=== PATIENT | female | born 1945 | race Caucasian/White ===

== ENCOUNTER 2017-07-03 10:09 | Inpatient (IN) | payer OTHER ==
[2017-07-03 10:20] VITALS: BMI 30.5
--- NOTE | 2017-07-03 12:01 | PDOC ---
History of Present Illness - General Chief Complaint: Pain, Acute Stated Complaint: PAIN/ NECK, BACK Time Seen by Provider: 07/03/17 10:35 - History of Present Illness Initial Comments: 07/03/17 11:52 71F with pmh of HTN presents with right shoulder pain since Monday night that progressively go up to her right neck which is now stuck in neutral position. She went to the Urgent care yesterday morning and was given a prescription for cyclobenzaprine for muscle spasm. Was seen by the PUBLICATIONS INSPECTOR of her PCP Dr. Rhonda De La Cruz who prescribed Augmentin for URI symptoms. 07/03/17 12:25 07/03/17 12:38 Past History - Past Medical History Allergies/Adverse Reactions: Allergies Allergy/AdvReac Type Severity Reaction Status Date / Time No Known Allergies Allergy Verified 07/03/17 10:19 Home Medications: Ambulatory Orders Aspirin [ASA -] 81 mg PO DAILY 10/24/14 Esomeprazole Mag Trihydrate [Nexium] 40 mg PO DAILY 10/24/14 Olmesartan/Hydrochlorothiazide [Benicar Hct 40-12.5 mg Tablet] 1 each PO DAILY 10/24/14 Asthma: Yes COPD: No HTN: Yes - Surgical History Abdominal Surgery: (nephrostomy) - Suicide/Smoking/Psychosocial Hx Smoking History: Never smoked Information on smoking cessation initiated: No Hx Alcohol Use: No Drug/Substance Use Hx: No Substance Use Type: None Review of Systems - Review of Systems Able to Perform ROS?: Yes Is the patient limited Welsh proficient: No Constitutional: No: Symptoms Reported HEENTM: Yes: Other (neck fixed and tender). No: Eye Pain, Blurred Vision, Recent change in vision, Ear Discharge, Tinnitus, Nose Bleeding, Throat Swelling Respiratory: Yes: Cough Cardiac (ROS): No: Symptoms Reported ABD/GI: No: Symptoms Reported : No: Symptoms Reported Musculoskeletal: No: Symptoms Reported Integumentary: No: Symptoms Reported All Other Systems: Reviewed and Negative *Physical Exam - Vital Signs Last Vital Signs Temp Pulse Resp BP Pulse Ox 98 F 103 H 19 144/44 98 07/03/17 10:17 07/03/17 10:17 07/03/17 10:17 07/03/17 10:17 07/03/17 10:17 - Physical Exam General Appearance: Yes: Nourished, Appropriately Dressed, Moderate Distress HEENT: positive: Other (tender neck, rigid) Respiratory/Chest: positive: Lungs Clear, Normal Breath Sounds. negative: Chest Tender Cardiovascular: positive: Regular Rhythm, Tachycardia Gastrointestinal/Abdominal: positive: Normal Bowel Sounds, Flat, Soft. negative : Tender Neurologic: positive: Fully Oriented, Alert, Normal Mood/Affect ED Treatment Course - LABORATORY CBC & Chemistry Diagram: 07/04/17 06:20 07/04/17 06:20 Medical Decision Making - Medical Decision Making 07/03/17 12:51 71F presenting with neck abd shoulder pain. Musculoskeletal etiology likely , but will rule out infectious or vascular etiology if symptoms don't resolve with valium, fluids and toradol. 07/03/17 15:20 Patient still in considerable pain. Will evaluate with carotid doppler. [facility] *DC/Admit/Observation/Transfer Diagnosis at time of Disposition: Neck pain - Discharge Dispostion Admit: Yes - Referrals - Patient Instructions - Post Discharge Activity
[2017-07-03] MEDS ORDERED: KETOROLAC TROMETHAMINE 15 MG/ML VIAL IVPUSH ONE (12:22)
[2017-07-03] MEDS ORDERED: diazePAM CARPU-JECT 10 MG/2 ML DISP.SYRIN IVPUSH ONE (12:22)
[2017-07-03 12:25] LABS: URINE APPEARANCE CLEAR; URINE BILIRUBIN NEGATIVE (NEGATIVE); URINE BLOOD NEGATIVE (NEGATIVE); URINE COLOR LTYELLOW; URINE GLUCOSE (UA) NEGATIVE (NEGATIVE); URINE KETONE NEGATIVE (NEGATIVE); URINE NITRITE NEGATIVE (NEGATIVE); URINE PROTEIN NEGATIVE (NEGATIVE); URINE UROBILINOGEN NEGATIVE mg/dL (0.2-1.0)
[2017-07-03] MEDS ORDERED: SODIUM CHLORIDE 1,000 ML IV STA (12:33)
--- NOTE | 2017-07-03 12:38 | PDOC ---
Attending Attestation - HPI HPI: 07/03/17 12:40 71 year old female, with significant past medical history of asthma, who presents to the emergency room today complaining of right sided shoulder pain and neck stiffness that has progressively worsened over the past 3 days. She visited an Urgent Care yesterday and was given flexeril without relief. She reports limited ROM and cannot turn her head to the right secondary to pain. 07/03/17 13:41 - Physicial Exam PE: 07/03/17 12:40 GENERAL: Awake, alert, and fully oriented, in no acute distress HEAD: No signs of trauma EYES: PERRLA, EOMI, sclera anicteric, conjunctiva clear ENT: Auricles normal inspection, hearing grossly normal, nares patent, oropharynx clear without exudates. Moist mucosa NECK:tenderness to palpation of the right posterior paraspinal muscle to the base of the skull, +limited ROM secondary to pain.There is no anterior neck tenderness. No erythema. No induration. No fluctuance. no lymphadenopathy, JVD, or masses LUNGS: Breath sounds equal, clear to auscultation bilaterally. No wheezes, and no crackles HEART: Regular rate and rhythm, normal S1 and S2, no murmurs, rubs or gallops EXTREMITIES: Normal range of motion, no edema. No clubbing or cyanosis. No cords, erythema, or tenderness NEUROLOGICAL: Cranial nerves II through XII grossly intact. Normal speech, normal gait SKIN: Warm, Dry, normal turgor, no rashes or lesions noted. <Marii Bro - Last Filed: 07/03/17 13:41> - Resident Resident Name: Rao Travis - ED Attending Attestation I have performed the following: I have examined & evaluated the patient, The case was reviewed & discussed with the resident, I agree w/resident's findings & plan, Exceptions are as noted - Medical Decision Making 07/03/17 13:44 Vital Signs Temp Pulse Resp BP Pulse Ox 98 F 103 H 19 144/44 98 07/03/17 10:17 07/03/17 10:17 07/03/17 10:17 07/03/17 10:17 07/03/17 10:17 71-year-old female with history of hypertension, asthma presents with right neck pain for several days. The patient was recently seen at an urgent care and was diagnosed with muscle spasm and given Flexeril. However, the Flexeril has not been improving symptoms. She also recently see her primary care doctor was prescribed Augmentin for upper respiratory infection. Has been compliant with her medications. The pain was persistent so came into the ED. MRI performed the right shoulder on June 16 shows soft tissue mass superior today acro clavicular joint which shows consistent findings of lipoma, mild before meals arthropathy, mild subchondral changes of the glenoid. Breast screening on 06/08 unremarkable. Patient has been given Toradol and Valium here. Given the persistent symptoms, I agree with the residence plan that we can perform the carotid ultrasound to rule out vessel disease such as dissection but pretest probability low. 07/03/17 15:10 CBC, BMP 07/03/17 12:30 07/03/17 12:30 CMP Sodium 137 mmol/L (136-145) 07/03/17 12:30 Potassium 4.1 mmol/L (3.5-5.1) 07/03/17 12:30 Chloride 100 mmol/L (98-107) 07/03/17 12:30 Carbon Dioxide 31 mmol/L (21-32) 07/03/17 12:30 Anion Gap 6 (8-16) L 07/03/17 12:30 BUN 12 mg/dL (7-18) 07/03/17 12:30 Creatinine 0.7 mg/dL (0.55-1.02) 07/03/17 12:30 Creat Clearance w eGFR > 60 (>60) 07/03/17 12:30 Random Glucose 157 mg/dL (74-106) H 07/03/17 12:30 Calcium 8.9 mg/dL (8.5-10.1) 07/03/17 12:30 Phosphorus 3.2 mg/dL (2.5-4.9) 07/03/17 12:30 Magnesium 2.1 mg/dL (1.8-2.4) 07/03/17 12:30 Total Bilirubin 0.8 mg/dL (0.2-1.0) 07/03/17 12:30 AST 14 U/L (15-37) L 07/03/17 12:30 ALT 31 U/L (12-78) 07/03/17 12:30 Alkaline Phosphatase 91 U/L (45-117) 07/03/17 12:30 Creatine Kinase 77 IU/L (26-192) 07/03/17 12:30 Troponin I < 0.02 ng/ml (0.00-0.05) 07/03/17 12:30 Total Protein 7.1 g/dl (6.4-8.2) 07/03/17 12:30 Albumin 3.8 g/dl (3.4-5.0) 07/03/17 12:30 Urine Test Results Urine Color Ltyellow 07/03/17 12:15 Urine Appearance Clear 07/03/17 12:15 Urine pH 5.0 (5.0-8.0) 07/03/17 12:15 Ur Specific [place] 1.006 (1.001-1.035) 07/03/17 12:15 Urine Protein Negative (NEGATIVE) 07/03/17 12:15 Urine Glucose (UA) Negative (NEGATIVE) 07/03/17 12:15 Urine Ketones Negative (NEGATIVE) 07/03/17 12:15 Urine Blood Negative (NEGATIVE) 07/03/17 12:15 Urine Nitrite Negative (NEGATIVE) 07/03/17 12:15 Urine Bilirubin Negative (NEGATIVE) 07/03/17 12:15 Pt continues to have persistent neck pain. Carotid dopplers pending. Given the persistence of pain, case was discussed with Dr. Montgomery, who accepts to med/surg observation. <Kamron Lindsey - Last Filed: 07/03/17 15:14> Heart Score/ECG Review #1 ECG reviewed & interpreted by me at: 13:10 07/03/17 14:40 NSR 96, +LVH, no std/john, Q wave V1-V2, QTC 439 msec <Kamron Lindsey - Last Filed: 07/03/17 15:14>
[2017-07-03] MEDS ORDERED: diazePAM 5 MG TABLET PO ONE (12:41)
[2017-07-03] MEDS ORDERED: diazePAM 5 MG TABLET ONE (12:42)
[2017-07-03 12:48] LABS: BASOPHIL 0.6 % (0-2.0); EOSINOPHIL 0.7 % (0-4.5); MCH 27.3 pg (25.7-33.7); MCHC 32.8 g/dl (32.0-36.0); MEAN CELL VOLUME 83.2 fl (80-96); MEAN PLT VOLUME 8.2 fl (7.5-11.1); NEUTROPHILS 81.7 % (42.8-82.8); PLATELET COUNT 240 K/MM3 (134-434); RDW 13.7 % (11.6-15.6)
[2017-07-03 13:03] LABS: ALBUMIN 3.8 g/dl (3.4-5.0); ANION GAP 6 (8-16); BILIRUBIN,TOTAL 0.8 mg/dL (0.2-1.0); CALCIUM 8.9 mg/dL (8.5-10.1); CO2 31 mmol/L (21-32); CREATININE 0.7 mg/dL (0.55-1.02); GLUCOSE,RANDOM 157 mg/dL (74-106); MAGNESIUM 2.1 mg/dL (1.8-2.4); PHOSPHOROUS 3.2 mg/dL (2.5-4.9); SGOT/AST 14 U/L (15-37); SGPT/ALT 31 U/L (12-78); TOT PROT 7.1 g/dl (6.4-8.2)
[2017-07-03 13:06] LABS: ALK PHOS 91 U/L (45-117); CPK 77 IU/L (26-192); TROPONIN I < 0.02 ng/ml (0.00-0.05)
[2017-07-03] MEDS ORDERED: KETOROLAC TROMETHAMINE 15 MG/ML VIAL ONE (13:07)
[2017-07-03 13:13] LABS: INR 1.08 (0.82-1.09); PROTHROMBIN TIME (PATIENT) 12.2 SEC (9.98-11.88)
[2017-07-03 13:16] LABS: ACTIVATED PTT 26.4 SECONDS (26.9-34.4)
[2017-07-03] MEDS ORDERED: morphine CARPU-JECT 4 MG/1 ML DISP.SYRIN IVPUSH ONE (14:58)
[2017-07-03] MEDS ORDERED: morphine SULFATE 4 MG/ML VIAL ONE (15:08)
[2017-07-03] MEDS ORDERED: morphine SULFATE 4 MG/ML VIAL IVPUSH PRN (16:57)
--- NOTE | 2017-07-03 16:58 | HP ---
Admitting History and Physical - Primary Care Physician PCP: Pancho De La Cruz - Admission Chief Complaint: neck pain for 3 days History of Present Illness: 71F with pmh of HTN presents with right shoulder pain since Monday night that progressively go up to her right neck which is now stuck in neutral position. She went to the Urgent care yesterday morning and was given a prescription for cyclobenzaprine for muscle spasm.she took flexeril yestgerdy not relief and today in morning before comming to ER no relief in ER she got valium and mprhione no relef History Source: Patient - Smoking History Smoking history: Never smoked - Alcohol/Substance Use Hx Alcohol Use: No Home Medications - Allergies Allergies/Adverse Reactions: Allergies Allergy/AdvReac Type Severity Reaction Status Date / Time No Known Allergies Allergy Verified 07/03/17 10:19 - Home Medications Home Medications: Ambulatory Orders Aspirin [ASA -] 81 mg PO DAILY 10/24/14 Esomeprazole Mag Trihydrate [Nexium] 40 mg PO DAILY 10/24/14 Olmesartan/Hydrochlorothiazide [Benicar Hct 40-12.5 mg Tablet] 1 each PO DAILY 10/24/14 Review of Systems - Review of Systems Neck: reports: Pain on Movement, Stiffness Physical Examination Vital Signs: Vital Signs Temperature 98 F 07/03/17 10:17 Pulse Rate 103 H 07/03/17 10:17 Respiratory Rate 19 07/03/17 10:17 Blood Pressure 144/44 07/03/17 10:17 O2 Sat by Pulse Oximetry (%) 98 07/03/17 10:17 Constitutional: Yes: Calm Neck: Yes: Rigid, Tenderness (unable to turn her head to the right side cannot exgtend of flex her neck) Cardiovascular: Yes: Regular Rate and Rhythm, S1, S2 Respiratory: Yes: CTA Bilaterally Gastrointestinal: Yes: Normal Bowel Sounds, Soft Edema: No Neurological: Yes: Alert, Oriented Labs: CBC, BMP 07/03/17 12:30 07/03/17 12:30 Problem List - Problems (1) Neck pain Assessment/Plan: observation neuro eval mujscle relaxants pain control ct scan of neck Code(s): M54.2 - CERVICALGIA (2) HTN (hypertension) Assessment/Plan: valsartan Code(s): I10 - ESSENTIAL (PRIMARY) HYPERTENSION
--- NOTE | 2017-07-03 17:17 | CONSULT ---
Consult - text type - Consultation Consultation Note: Neurology History of Present Illness 71F with pmh of HTN presents with right shoulder pain since Monday night that progressively go up to her right neck which is now stuck in neutral position. She went to the Urgent care yesterday morning and was given a prescription for cyclobenzaprine for muscle spasm without relief. She completed MRI of Upper ext ten days ago which I reviewed and showed lipoma but not major structural injuries of shoulder. Her symptoms seem more consistent with Cervicalgia and Cervical radiculopathy. I discussed with her having an MRI of C spine to further evaluate and she agreed. Muscle relaxant should be continued and provide relief in conjuntion with pain medication. Past History - Past Medical History Allergies/Adverse Reactions: Allergies Allergy/AdvReac Type Severity Reaction Status Date / Time No Known Allergies Allergy Verified 07/03/17 10:19 Home Medications: Ambulatory Orders Aspirin [ASA -] 81 mg PO DAILY 10/24/14 Esomeprazole Mag Trihydrate [Nexium] 40 mg PO DAILY 10/24/14 Olmesartan/Hydrochlorothiazide [Benicar Hct 40-12.5 mg Tablet] 1 each PO DAILY 10/24/14 Asthma: Yes COPD: No HTN: Yes - Surgical History Abdominal Surgery: (nephrostomy) - Suicide/Smoking/Psychosocial Hx Smoking History: Never smoked Information on smoking cessation initiated: No Hx Alcohol Use: No Drug/Substance Use Hx: No Substance Use Type: None Review of Systems - Review of Systems Able to Perform ROS?: Yes Is the patient limited Iraqi proficient: No Constitutional: No: Symptoms Reported HEENTM: Yes: Other (neck fixed and tender). No: Eye Pain, Blurred Vision, Recent change in vision, Ear Discharge, Tinnitus, Nose Bleeding, Throat Swelling Respiratory: Yes: Cough Cardiac (ROS): No: Symptoms Reported ABD/GI: No: Symptoms Reported : No: Symptoms Reported Musculoskeletal: No: Symptoms Reported Integumentary: No: Symptoms Reported All Other Systems: Reviewed and Negative *Physical Exam - Vital Signs Last Vital Signs Temp Pulse Resp BP Pulse Ox 98 F 103 H 19 144/44 98 07/03/17 10:17 07/03/17 10:17 07/03/17 10:17 07/03/17 10:17 07/03/17 10:17 - Physical Exam General Appearance: Yes: Nourished, Appropriately Dressed, Moderate Distress HEENT: positive: Other (tender neck, rigid) Respiratory/Chest: positive: Lungs Clear, Normal Breath Sounds. negative: Chest Tender Cardiovascular: positive: Regular Rhythm, Tachycardia Gastrointestinal/Abdominal: positive: Normal Bowel Sounds, Flat, Soft. negative : Tender Neurologic: positive: Fully Oriented, Alert, Normal Mood/Affect, limited range of motion of C spine, strenght intact, sensory normal, gait deferred CBCD WBC 11.0 K/mm3 (4.0-10.0) H 07/03/17 12:30 RBC 4.69 M/mm3 (3.60-5.2) 07/03/17 12:30 Hgb 12.8 GM/dL (10.7-15.3) 07/03/17 12:30 Hct 39.0 % (32.4-45.2) 07/03/17 12:30 MCV 83.2 fl (80-96) 07/03/17 12:30 MCHC 32.8 g/dl (32.0-36.0) 07/03/17 12:30 RDW 13.7 % (11.6-15.6) 07/03/17 12:30 Plt Count 240 K/MM3 (134-434) 07/03/17 12:30 MPV 8.2 fl (7.5-11.1) 07/03/17 12:30 CMP Sodium 137 mmol/L (136-145) 07/03/17 12:30 Potassium 4.1 mmol/L (3.5-5.1) 07/03/17 12:30 Chloride 100 mmol/L (98-107) 07/03/17 12:30 Carbon Dioxide 31 mmol/L (21-32) 07/03/17 12:30 Anion Gap 6 (8-16) L 07/03/17 12:30 BUN 12 mg/dL (7-18) 07/03/17 12:30 Creatinine 0.7 mg/dL (0.55-1.02) 07/03/17 12:30 Creat Clearance w eGFR > 60 (>60) 07/03/17 12:30 Calcium 8.9 mg/dL (8.5-10.1) 07/03/17 12:30 Total Bilirubin 0.8 mg/dL (0.2-1.0) 07/03/17 12:30 AST 14 U/L (15-37) L 07/03/17 12:30 ALT 31 U/L (12-78) 07/03/17 12:30 Alkaline Phosphatase 91 U/L (45-117) 07/03/17 12:30 Total Protein 7.1 g/dl (6.4-8.2) 07/03/17 12:30 Albumin 3.8 g/dl (3.4-5.0) 07/03/17 12:30 MRI Upper Ext reviewed Medical Decision Making 71F with pmh of HTN presents with right shoulder pain since Monday night that progressively go up to her right neck which is now stuck in neutral position. She went to the Urgent care yesterday morning and was given a prescription for cyclobenzaprine for muscle spasm without relief. She completed MRI of Upper ext ten days ago which I reviewed and showed lipoma but not major structural injuries of shoulder. Her symptoms seem more consistent with Cervicalgia and Cervical radiculopathy. I discussed with her having an MRI of C spine to further evaluate and she agreed. Muscle relaxant should be continued and provide relief in conjuntion with pain medication. Can continue Cyclobenzaprine 10mg up to three times per day. Will add lidocaine patch. Will order MRI C spine. Physical therapy may be of benefit. Also recommended cold compresses and/ or heat therapy. No sudden head movements.
[2017-07-03 17:44] LABS: URINE LEUK ESTERASE Negative (NEGATIVE)
[2017-07-03] MEDS ORDERED: CYCLOBENZAPRINE HCL 10 MG TABLET (FP) ONE (17:56)
[2017-07-03] MEDS: CYCLOBENZAPRINE HCL 10 MG TABLET (FP) PO SCH ×2 (18:00→23:00)
--- NOTE | 2017-07-03 19:49 | CONSULT ---
Consult - Alcohol/Substance Use Hx Alcohol Use: No - Smoking History Smoking history: Never smoked Home Medications - Allergies Allergies/Adverse Reactions: Allergies Allergy/AdvReac Type Severity Reaction Status Date / Time No Known Allergies Allergy Verified 07/03/17 10:19 - Home Medications Home Medications: Ambulatory Orders Aspirin [ASA -] 81 mg PO DAILY 10/24/14 Esomeprazole Mag Trihydrate [Nexium] 40 mg PO DAILY 10/24/14 Olmesartan/Hydrochlorothiazide [Benicar Hct 40-12.5 mg Tablet] 1 each PO DAILY 10/24/14 Physical Exam Vital Signs: Vital Signs Temperature 98 F 07/03/17 10:17 Pulse Rate 95 H 07/03/17 17:15 Respiratory Rate 18 07/03/17 17:15 Blood Pressure 154/86 07/03/17 17:15 O2 Sat by Pulse Oximetry (%) 99 07/03/17 17:15 Labs: CBC, BMP 07/03/17 12:30 07/03/17 12:30 Assessment/Plan Vascular Surgery 71F with pmh of HTN presents with right shoulder pain since Monday night that progressively go up to her right neck which is now stuck in neutral position. She went to the Urgent care yesterday morning and was given a prescription for cyclobenzaprine for muscle spasm. Was seen by the SKI INSTRUCTOR of her PCP Dr. Rhonda De La Cruz who prescribed Augmentin for URI symptoms. 07/03/17 12:25 07/03/17 12:38 Past History - Past Medical History Allergies/Adverse Reactions: Allergies Allergy/AdvReac Type Severity Reaction Status Date / Time No Known Allergies Allergy Verified 07/03/17 10:19 Home Medications: Ambulatory Orders Aspirin [ASA -] 81 mg PO DAILY 10/24/14 Esomeprazole Mag Trihydrate [Nexium] 40 mg PO DAILY 10/24/14 Olmesartan/Hydrochlorothiazide [Benicar Hct 40-12.5 mg Tablet] 1 each PO DAILY 10/24/14 Asthma: Yes COPD: No HTN: Yes PE Head - NC/At lUng - CTA heart - RRR abd - soft,nt,nd ext - warm, pink. Neck very stiff. FROM x 4 A/P Carotid doppler reviewed -- all normal. No need for any surgery . all velocities normal. MRI pending. Medical management. Veto Mccray DO
[2017-07-03] MEDS ORDERED: HYDROmorphone HCL CARPU-JECT 1 MG/1 ML DISP.SYRIN IVPB PRN (19:52)
[2017-07-03] MEDS: LIDOCAINE 5% TOPICAL PATCH TP SCH (19:57)
[2017-07-03 20:06] LABS: CPK 54 IU/L (26-192); TROPONIN I < 0.02 ng/ml (0.00-0.05)
[2017-07-03] MEDS: HYDROmorphone HCL CARPU-JECT 2 MG/1 ML DISP.SYRIN IVPB PRN (20:51)
[2017-07-03] MEDS: LIDOCAINE PATCH REMOVAL MC SCH (21:35)
[2017-07-04] MEDS: HYDROmorphone HCL CARPU-JECT 2 MG/1 ML DISP.SYRIN IVPB PRN ×4 (00:45→23:08)
[2017-07-04] MEDS: CYCLOBENZAPRINE HCL 10 MG TABLET (FP) PO SCH ×3 (05:55→21:16)
[2017-07-04] MEDS: LIDOCAINE PATCH REMOVAL MC SCH ×2 (06:03→22:15)
[2017-07-04 08:04] LABS: ANION GAP 2 (8-16); CALCIUM 8.3 mg/dL (8.5-10.1); CO2 34 mmol/L (21-32); GLUCOSE,RANDOM 169 mg/dL (74-106); MAGNESIUM 1.9 mg/dL (1.8-2.4); PHOSPHOROUS 2.6 mg/dL (2.5-4.9); SGOT/AST 10 U/L (15-37)
[2017-07-04 08:06] LABS: ALK PHOS 80 U/L (45-117); BILIRUBIN,TOTAL 0.8 mg/dL (0.2-1.0); CREATININE 0.6 mg/dL (0.55-1.02); SGPT/ALT 25 U/L (12-78)
[2017-07-04 08:10] LABS: BASOPHIL 0.5 % (0-2.0); EOSINOPHIL 1.1 % (0-4.5); MCH 27.9 pg (25.7-33.7); MCHC 33.7 g/dl (32.0-36.0); MEAN CELL VOLUME 82.7 fl (80-96); MEAN PLT VOLUME 8.5 fl (7.5-11.1); NEUTROPHILS 80.8 % (42.8-82.8); PLATELET COUNT 184 K/MM3 (134-434); RDW 13.6 % (11.6-15.6); WHITE BLOOD COUNT 8.8 K/mm3 (4.0-10.0)
[2017-07-04 08:49] LABS: CPK 41 IU/L (26-192); TROPONIN I < 0.02 ng/ml (0.00-0.05)
--- NOTE | 2017-07-04 09:19 | PN ---
Progress Note (short form) - Note Progress Note: Neurology History of Present Illness 71F with pmh of HTN presents with right shoulder pain since Monday night that progressively go up to her right neck which is now stuck in neutral position. She went to the Urgent care yesterday morning and was given a prescription for cyclobenzaprine for muscle spasm without relief. She completed MRI of Upper ext ten days ago which I reviewed and showed lipoma but not major structural injuries of shoulder. Her symptoms seem more consistent with Cervicalgia and Cervical radiculopathy. I discussed with her having an MRI of C spine to further evaluate and she agreed. Muscle relaxant should be continued and provide relief in conjuntion with pain medication. Lidocaine patch had been ordered with minimal relief. She remains with muscle spasm and stiff neck. Spoke to Dr. De La Cruz today, plan to try short course of Decadron, in agreement with this. Carotid dopplers completed and reviewed, mentioned 50-69% stenosis of L ICA. Vascular surgery note reviewed, reports this is normal, no surgical intervention, also recommends MRI C spine. Active Medications Cyclobenzaprine HCl (Flexeril -) 10 mg PO TID [facility] Last Admin: 07/04/17 05:55 Dose: 10 mg Hydromorphone HCl (Dilaudid Injection -) 1 mg IVPB Q4H PRN PRN Reason: PAIN Last Admin: 07/04/17 06:54 Dose: 1 mg Lidocaine (Lidoderm Patch -) 1 patch TP DAILY [facility] Last Admin: 07/03/17 19:57 Dose: 1 patch Lorazepam (Ativan -) 1 mg PO ONCE ONE Stop: 07/04/17 09:15 Miscellaneous (Lidoderm Patch Removal) 1 each MC DAILY@2200 [facility] Last Admin: 07/04/17 06:03 Dose: 1 each Morphine Sulfate (Morphine Sulfate) 4 mg IVPUSH Q6H PRN PRN Reason: PAIN Valsartan (Diovan -) 80 mg PO DAILY [facility] *Physical Exam Vital Signs Period Temp Pulse Resp BP Sys/Zimmer Pulse Ox Last 24 Hr 98 F-99 F 92-103 18-21 137-154/44-86 98-99 - Physical Exam General Appearance: Yes: Nourished, Appropriately Dressed, Moderate Distress HEENT: positive: Other (tender neck, rigid) Respiratory/Chest: positive: Lungs Clear, Normal Breath Sounds. negative: Chest Tender Cardiovascular: positive: Regular Rhythm, Tachycardia Gastrointestinal/Abdominal: positive: Normal Bowel Sounds, Flat, Soft. negative : Tender Neurologic: positive: Fully Oriented, Alert, Normal Mood/Affect, limited range of motion of C spine, strenght intact, sensory normal, gait deferred CBCD WBC 8.8 K/mm3 (4.0-10.0) 07/04/17 06:20 RBC 4.11 M/mm3 (3.60-5.2) 07/04/17 06:20 Hgb 11.4 GM/dL (10.7-15.3) D 07/04/17 06:20 Hct 34.0 % (32.4-45.2) 07/04/17 06:20 MCV 82.7 fl (80-96) 07/04/17 06:20 MCHC 33.7 g/dl (32.0-36.0) 07/04/17 06:20 RDW 13.6 % (11.6-15.6) 07/04/17 06:20 Plt Count 184 K/MM3 (134-434) D 07/04/17 06:20 MPV 8.5 fl (7.5-11.1) 07/04/17 06:20 CMP Sodium 137 mmol/L (136-145) 07/04/17 06:20 Potassium 3.8 mmol/L (3.5-5.1) 07/04/17 06:20 Chloride 101 mmol/L (98-107) 07/04/17 06:20 Carbon Dioxide 34 mmol/L (21-32) H 07/04/17 06:20 Anion Gap 2 (8-16) L 07/04/17 06:20 BUN 11 mg/dL (7-18) 07/04/17 06:20 Creatinine 0.6 mg/dL (0.55-1.02) 07/04/17 06:20 Creat Clearance w eGFR > 60 (>60) 07/04/17 06:20 Calcium 8.3 mg/dL (8.5-10.1) L 07/04/17 06:20 Total Bilirubin 0.8 mg/dL (0.2-1.0) 07/04/17 06:20 AST 10 U/L (15-37) L D 07/04/17 06:20 ALT 25 U/L (12-78) 07/04/17 06:20 Alkaline Phosphatase 80 U/L (45-117) 07/04/17 06:20 Total Protein 6.0 g/dl (6.4-8.2) L 07/04/17 06:20 Albumin 3.0 g/dl (3.4-5.0) L D 07/04/17 06:20 MRI Upper Ext reviewed Carotid Dopplers reviewed Medical Decision Making 71F with pmh of HTN presents with right shoulder pain since Monday night that progressively go up to her right neck which is now stuck in neutral position. She went to the Urgent care yesterday morning and was given a prescription for cyclobenzaprine for muscle spasm without relief. She completed MRI of Upper ext ten days ago which I reviewed and showed lipoma but not major structural injuries of shoulder. Her symptoms seem more consistent with Cervicalgia and Cervical radiculopathy. I discussed with her having an MRI of C spine to further evaluate and she agreed. Continue Cyclobenzaprine 10mg up to three times per day. Addded lidocaine patch. MRI C spine pending. Physical therapy may be of benefit once muscle spasm improves. Also recommended cold compresses and/or heat therapy. No sudden head movements. Decadron short course to be tried as well. No surgical intervention for Carotid doppler L ICA 50-69% stenosis as per vascular surgery note.
--- NOTE | 2017-07-04 09:25 | PN ---
Progress Note, Physician History of Present Illness: SEVERE NECK PAIN - Current Medication List Current Medications: Active Medications Cyclobenzaprine HCl (Flexeril -) 10 mg PO TID [facility] Last Admin: 07/04/17 05:55 Dose: 10 mg Hydromorphone HCl (Dilaudid Injection -) 1 mg IVPB Q4H PRN PRN Reason: PAIN Last Admin: 07/04/17 06:54 Dose: 1 mg Lidocaine (Lidoderm Patch -) 1 patch TP DAILY [facility] Last Admin: 07/03/17 19:57 Dose: 1 patch Lorazepam (Ativan -) 1 mg PO ONCE ONE Stop: 07/04/17 09:15 Miscellaneous (Lidoderm Patch Removal) 1 each MC DAILY@2200 [facility] Last Admin: 07/04/17 06:03 Dose: 1 each Morphine Sulfate (Morphine Sulfate) 4 mg IVPUSH Q6H PRN PRN Reason: PAIN Valsartan (Diovan -) 80 mg PO DAILY [facility] - Objective Vital Signs: Vital Signs Temperature 98.9 F 07/04/17 05:53 Pulse Rate 99 H 07/04/17 05:53 Respiratory Rate 21 07/04/17 05:53 Blood Pressure 137/74 07/04/17 05:53 O2 Sat by Pulse Oximetry (%) 98 07/04/17 00:17 Neck: Yes: Decreased ROM, Other (TENDERNESS OF THE NECK) Cardiovascular: Yes: Regular Rate and Rhythm Respiratory: Yes: Regular, CTA Bilaterally Gastrointestinal: Yes: Normal Bowel Sounds, Soft Labs: CBC, BMP 07/04/17 06:20 07/04/17 06:20 INR, PTT INR 1.08 (0.82-1.09) 07/03/17 12:30 Problem List - Problems (1) Neck pain Assessment/Plan: R/O SPINAL STENOSIS MRI OF HEAD START IV DECADRON Code(s): M54.2 - CERVICALGIA (2) HTN (hypertension) Assessment/Plan: MONITOR Code(s): I10 - ESSENTIAL (PRIMARY) HYPERTENSION
--- NOTE | 2017-07-04 10:26 | EKG ---
Test Reason : Blood Pressure : / mmHG Vent. Rate : 096 BPM Atrial Rate : 096 BPM P-R Int : 150 ms QRS Dur : 082 ms QT Int : 348 ms P-R-T Axes : 000 -02 003 degrees QTc Int : 439 ms NORMAL SINUS RHYTHM MINIMAL VOLTAGE CRITERIA FOR LVH, MAY BE NORMAL VARIANT POSSIBLE ANTERIOR INFARCT (CITED ON OR BEFORE 24-SEP-2002) ABNORMAL ECG WHEN COMPARED WITH ECG OF 21-AUG-2008 10:37, QUESTIONABLE CHANGE IN INITIAL FORCES OF ANTEROSEPTAL LEADS Confirmed by NEAL RDZ, JACQUELINE ([id number]) on 07/04/2017 10:26:00 AM Referred By: Confirmed By:JACQUELINE DE JESUS MD
[2017-07-04] MEDS: DEXAMETHASONE SOD PHOSPHATE 10 MG/1 ML VIAL IVPUSH SCH ×3 (11:16→18:34)
[2017-07-04] MEDS: VALSARTAN 80 MG TABLET (UD) PO SCH (11:22)
[2017-07-04] MEDS: LIDOCAINE 5% TOPICAL PATCH TP SCH (11:22)
--- NOTE | 2017-07-04 14:34 | CON.CARD ---
Consult Consult Specialty:: Cardiology Referred by:: Dr De La Cruz Reason for Consultation:: carotid stenosis - History of Present Illness Chief Complaint: neck pain History of Present Illness: 71 year old woman history of htn chol admitted with severe neck pain/spasm. Found on carotid sonogram with left sided carotid stenosis 50-69%. No history of stroke or TIA. No history of GA, cp, sob, orthopnea,pnd or edema. Baseline exercise tolerance is good. - History Source History Provided By: Patient Limitations to Obtaining History: No Limitations - Alcohol/Substance Use Hx Alcohol Use: No - Smoking History Smoking history: Never smoked Home Medications - Allergies Allergies/Adverse Reactions: Allergies Allergy/AdvReac Type Severity Reaction Status Date / Time No Known Allergies Allergy Verified 07/03/17 10:19 - Home Medications Home Medications: Ambulatory Orders Aspirin [ASA -] 81 mg PO DAILY 10/24/14 Esomeprazole Mag Trihydrate [Nexium] 40 mg PO DAILY 10/24/14 Olmesartan/Hydrochlorothiazide [Benicar Hct 40-12.5 mg Tablet] 1 each PO DAILY 10/24/14 Family Disease History - Family Disease History Family History: Denies Review of Systems - Review of Systems Constitutional: reports: No Symptoms Eyes: reports: No Symptoms HENT: reports: No Symptoms Neck: reports: Pain on Movement, Stiffness Cardiovascular: reports: No Symptoms Respiratory: reports: No Symptoms Gastrointestinal: reports: No Symptoms Genitourinary: reports: No Symptoms Vital Signs: Vital Signs Temperature 98.7 F 07/04/17 14:00 Pulse Rate 119 H 07/04/17 14:00 Respiratory Rate 22 07/04/17 14:00 Blood Pressure 135/81 07/04/17 14:00 O2 Sat by Pulse Oximetry (%) 98 07/04/17 00:17 Constitutional: Yes: No Distress, Calm Eyes: Yes: EOM Intact HENT: Yes: Atraumatic, Normocephalic Neck: Yes: Trachea Midline Respiratory: Yes: CTA Bilaterally Gastrointestinal: Yes: Normal Bowel Sounds Cardiovascular: Yes: Regular Rate and Rhythm JVD: No Carotid Bruit: No PMI: Non-Displaced Heart Sounds: Yes: S1, S2 Extremities: Yes: WNL Edema: No Peripheral Pulses WNL: Yes - Other Data Labs, Other Data: CBC, BMP 07/04/17 06:20 07/04/17 06:20 INR, PTT INR 1.08 (0.82-1.09) 07/03/17 12:30 Troponin, BNP 07/03/17 07/04/17 07/04/17 18:20 06:20 06:20 Troponin I < 0.02 < 0.02 Cancelled Troponin, BNP 07/03/17 07/04/17 07/04/17 18:20 06:20 06:20 Troponin I < 0.02 < 0.02 Cancelled Imaging - Results EKG: Report Reviewed (nsr lvh old iwmi) Problem List - Problems (1) Carotid stenosis, asymptomatic Assessment/Plan: No need for testing. would treat with aspirin and statin for primary prevention. target LDL < 70 mg/dl. will see as needed. Code(s): I65.29 - OCCLUSION AND STENOSIS OF UNSPECIFIED CAROTID ARTERY Qualifiers: Laterality: left Qualified Code(s): I65.22 - Occlusion and stenosis of left carotid artery
[2017-07-04] MEDS ORDERED: LORazepam 1 MG TABLET PO ONE (15:00)
[2017-07-05] MEDS: DEXAMETHASONE SOD PHOSPHATE 10 MG/1 ML VIAL IVPUSH SCH ×3 (02:10→18:25)
[2017-07-05] MEDS: CYCLOBENZAPRINE HCL 10 MG TABLET (FP) PO SCH ×3 (06:12→21:24)
[2017-07-05] MEDS ORDERED: PT OWN MED DRAWER 7, Y5N ONE ×2 (09:17→18:24)
[2017-07-05] MEDS: VALSARTAN 80 MG TABLET (UD) PO SCH (09:29)
[2017-07-05] MEDS: LIDOCAINE 5% TOPICAL PATCH TP SCH (09:29)
--- NOTE | 2017-07-05 09:51 | PN ---
Progress Note (short form) - Note Progress Note: Neurology History of Present Illness 71F with pmh of HTN presents with right shoulder pain since Monday night that progressively go up to her right neck which is now stuck in neutral position. She went to the Urgent care yesterday morning and was given a prescription for cyclobenzaprine for muscle spasm without relief. She completed MRI of Upper ext ten days ago which I reviewed and showed lipoma but not major structural injuries of shoulder. Her symptoms seem more consistent with Cervicalgia and Cervical radiculopathy. MRI C spine completed and reviewed with patient. Demonstrated C4/C5 moderate to severe stenosis along with mass effect on L C5 nerve root, though her pain is on the R side. There is facet arthropathy. Normal spinal cord signal. Muscle relaxant should be continued and provide relief in conjuntion with pain medication. Lidocaine patch had been ordered with minimal relief. She remains with muscle spasm and stiff neck. Discussed further treatment options inlcuding surgery and injections as well. Remains on course of Decadron, 10mg Q8hrs with some relief and little less stiff today. Carotid dopplers completed and reviewed , mentioned 50-69% stenosis of L ICA. Vascular surgery note reviewed, reports this is normal, no surgical intervention, also recommends MRI C spine. Active Medications Cyclobenzaprine HCl (Flexeril -) 10 mg PO TID [facility] Last Admin: 07/05/17 06:12 Dose: 10 mg Dexamethasone Sodium Phosphate (Decadron Injection -) 10 mg IVPUSH Q8H-IV [facility] Last Admin: 07/05/17 09:29 Dose: 10 mg Gabapentin (Neurontin -) 300 mg PO BID [facility] Hydromorphone HCl (Dilaudid Injection -) 1 mg IVPB Q4H PRN PRN Reason: PAIN Last Admin: 07/04/17 23:08 Dose: 1 mg Lidocaine (Lidoderm Patch -) 1 patch TP DAILY [facility] Last Admin: 07/05/17 09:29 Dose: 1 patch Miscellaneous (Lidoderm Patch Removal) 1 each MC DAILY@2200 [facility] Last Admin: 07/04/17 22:15 Dose: Not Given Morphine Sulfate (Morphine Sulfate) 4 mg IVPUSH Q6H PRN PRN Reason: PAIN Valsartan (Diovan -) 80 mg PO DAILY [facility] Last Admin: 07/05/17 09:29 Dose: 80 mg *Physical Exam Vital Signs Temperature 97.8 F 07/05/17 06:15 Pulse Rate 87 07/05/17 06:15 Respiratory Rate 20 07/05/17 06:15 Blood Pressure 119/61 07/05/17 06:15 O2 Sat by Pulse Oximetry (%) 98 07/05/17 02:00 - Physical Exam General Appearance: Yes: Nourished, Appropriately Dressed, Moderate Distress HEENT: positive: Other (tender neck, rigid) Respiratory/Chest: positive: Lungs Clear, Normal Breath Sounds. negative: Chest Tender Cardiovascular: positive: Regular Rhythm, Tachycardia Gastrointestinal/Abdominal: positive: Normal Bowel Sounds, Flat, Soft. negative : Tender Neurologic: positive: Fully Oriented, Alert, Normal Mood/Affect, limited range of motion of C spine, strenght intact, sensory normal, gait deferred CBCD WBC 8.8 K/mm3 (4.0-10.0) 07/04/17 06:20 RBC 4.11 M/mm3 (3.60-5.2) 07/04/17 06:20 Hgb 11.4 GM/dL (10.7-15.3) D 07/04/17 06:20 Hct 34.0 % (32.4-45.2) 07/04/17 06:20 MCV 82.7 fl (80-96) 07/04/17 06:20 MCHC 33.7 g/dl (32.0-36.0) 07/04/17 06:20 RDW 13.6 % (11.6-15.6) 07/04/17 06:20 Plt Count 184 K/MM3 (134-434) D 07/04/17 06:20 MPV 8.5 fl (7.5-11.1) 07/04/17 06:20 CMP Sodium 137 mmol/L (136-145) 07/04/17 06:20 Potassium 3.8 mmol/L (3.5-5.1) 07/04/17 06:20 Chloride 101 mmol/L (98-107) 07/04/17 06:20 Carbon Dioxide 34 mmol/L (21-32) H 07/04/17 06:20 Anion Gap 2 (8-16) L 07/04/17 06:20 BUN 11 mg/dL (7-18) 07/04/17 06:20 Creatinine 0.6 mg/dL (0.55-1.02) 07/04/17 06:20 Creat Clearance w eGFR > 60 (>60) 07/04/17 06:20 Calcium 8.3 mg/dL (8.5-10.1) L 07/04/17 06:20 Total Bilirubin 0.8 mg/dL (0.2-1.0) 07/04/17 06:20 AST 10 U/L (15-37) L D 07/04/17 06:20 ALT 25 U/L (12-78) 07/04/17 06:20 Alkaline Phosphatase 80 U/L (45-117) 07/04/17 06:20 Total Protein 6.0 g/dl (6.4-8.2) L 07/04/17 06:20 Albumin 3.0 g/dl (3.4-5.0) L D 07/04/17 06:20 MRI Upper Ext reviewed Carotid Dopplers reviewed MRI C spine reviewed Medical Decision Making 71F with pmh of HTN presents with right shoulder pain since Monday night that progressively go up to her right neck which is now stuck in neutral position. She went to the Urgent care yesterday morning and was given a prescription for cyclobenzaprine for muscle spasm without relief. She completed MRI of Upper ext ten days ago which I reviewed and showed lipoma but not major structural injuries of shoulder. Her symptoms seem more consistent with Cervicalgia and Cervical radiculopathy. MRI C spine reviewed and discussed as above. Discussed treatment options including injections. Continue Cyclobenzaprine 10mg up to three times per day. Will add gabapentin 300mg twice a day for cervical radiculopathy into RUE. Physical therapy may be of benefit once muscle spasm improves. Also recommended cold compresses and/or heat therapy. No sudden head movements. Decadron short course to be continued at 10mg Q8 hrs. Is less stiff in her C spine today. No surgical intervention for Carotid doppler L ICA 50-69% stenosis as per vascular surgery note.
[2017-07-05] MEDS: GABAPENTIN 300 MG CAPSULE (FP) PO SCH ×2 (10:35→21:24)
--- NOTE | 2017-07-05 18:15 | PN ---
Progress Note, Physician Chief Complaint: Neck pain History of Present Illness: NAD, pain is much better Seen by Neurology MRI C spine reviewed to be seen by Neurosurgery to evaluate for any surgical intervention Pain management- muscle relaxer, morphine and hydromorphone ordered as needed - Current Medication List Current Medications: Active Medications Cyclobenzaprine HCl (Flexeril -) 10 mg PO TID [facility] Last Admin: 07/05/17 14:16 Dose: 10 mg Dexamethasone Sodium Phosphate (Decadron Injection -) 10 mg IVPUSH Q8H-IV [facility] Last Admin: 07/05/17 09:29 Dose: 10 mg Gabapentin (Neurontin -) 300 mg PO BID [facility] Last Admin: 07/05/17 10:35 Dose: 300 mg Hydromorphone HCl (Dilaudid Injection -) 1 mg IVPB Q4H PRN PRN Reason: PAIN Last Admin: 07/04/17 23:08 Dose: 1 mg Lidocaine (Lidoderm Patch -) 1 patch TP DAILY [facility] Last Admin: 07/05/17 09:29 Dose: 1 patch Miscellaneous (Lidoderm Patch Removal) 1 each MC DAILY@2200 [facility] Last Admin: 07/04/17 22:15 Dose: Not Given Morphine Sulfate (Morphine Sulfate) 4 mg IVPUSH Q6H PRN PRN Reason: PAIN Valsartan (Diovan -) 80 mg PO DAILY [facility] Last Admin: 07/05/17 09:29 Dose: 80 mg - Objective Vital Signs: Vital Signs Temperature 97.4 F L 07/05/17 13:54 Pulse Rate 100 H 07/05/17 13:54 Respiratory Rate 22 07/05/17 13:54 Blood Pressure 148/73 07/05/17 13:54 O2 Sat by Pulse Oximetry (%) 98 07/05/17 02:00 Constitutional: Yes: Well Nourished, No Distress, Calm Neck: Yes: Decreased ROM Cardiovascular: Yes: Regular Rate and Rhythm Respiratory: Yes: Regular Gastrointestinal: Yes: Normal Bowel Sounds Musculoskeletal: Yes: WNL Extremities: Yes: WNL Edema: No Peripheral Pulses WNL: Yes Neurological: Yes: Alert, Oriented Psychiatric: Yes: Alert, Oriented Labs: CBC, BMP 07/04/17 06:20 07/04/17 06:20 INR, PTT INR 1.08 (0.82-1.09) 07/03/17 12:30 Problem List - Problems (1) Carotid stenosis, asymptomatic Assessment/Plan: -asymptomatic -no intervention indicated at this time -seen by Vascular and cardiology Code(s): I65.29 - OCCLUSION AND STENOSIS OF UNSPECIFIED CAROTID ARTERY Qualifiers: Laterality: left Qualified Code(s): I65.22 - Occlusion and stenosis of left carotid artery (2) HTN (hypertension) Assessment/Plan: -chronic -Controlled at this time Code(s): I10 - ESSENTIAL (PRIMARY) HYPERTENSION (3) Cervical spinal stenosis Assessment/Plan: -Seen by neurologist -on muscle relaxers, IV steroids and IV pain management -Cold compress as needed Code(s): M48.02 - SPINAL STENOSIS, CERVICAL REGION (4) Cervical spinal mass Assessment/Plan: -possible C5 nerve root mass -to be evaluated by Neurosurgery Code(s): G95.9 - DISEASE OF SPINAL CORD, UNSPECIFIED Assessment/Plan see problem list
[2017-07-05] MEDS ORDERED: ALBUTEROL SO4 2.5/IPRATROPIUM 0.5 INH SOL 3 ML VIAL.NEB. NEB PRN (18:21)
[2017-07-05] MEDS ORDERED: guaiFENesin/D-METHORPHAN HB 10 ML UNIT-DOSE CUPS PO PRN (18:22)
[2017-07-05] MEDS: LIDOCAINE PATCH REMOVAL MC SCH (21:24)
--- NOTE | 2017-07-05 22:44 | CONSULT ---
Consult - text type - Consultation Consultation Note: Asked to see this very pleasant 71 year old female who developed acute Right shoulder and neck pain with restricted range of motion last Monday. The patient denies any antecedent accident or injury and has been fairly active and has been traveling extensively without difficulty. Since the development of these acute symptoms on Monday, she finds that she cannot turn her neck to the Right. She has difficulty with driving and has to turn her entire body to look Right and relies excessively on mirrors. She denies any numbness and tingling in her hands and has no loss of fine motor skills. She has not been dropping things. Her pain is primarily in this region of the Right trapezius and shoulder. The patient was initially seen at an urgent care center and was diagnosed with "muscle spasm" and was given muscle relaxers which did not afford her any relief. The pains progressed and she presented to the [facility] ER on Monday. She has been neurologically nonfocal and although there is suggestion of microvascular disease on Brain MRI, Vascular workup did not reveal an etiology for these troubling symptoms of stiffness and neck/shoulder pain. MRI Cervical demonstrates multilevel degnerative changes. There is spondylosis with osteophytes, hypertrophic ligamentum flavum at multiple levels between C3 and C7. There is a mild loss of lordosis. There are acute disc protrusions at C45 and C67 which cause both foraminal stenosis and effacement of the ventral CSF space and deformation of the Ventral contour of the Cervical spinal cord. There is CSF effacement and Ventral and Dorsal deformation of the spinal cord at C34 and C56 to a lesser extent. There are degenerative changes suggesting facet arthropathy and instability which are worst at C45 where there is acute fluid within the C45 facets. 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 I explained that no urgent surgical intervention is mandatory and her pain seems to be reasonably well controlled with analgesics and Steroids. She may well recover from this acute episode and go back to her slowly progressing state. I did explain that there remains a possibility that after her steroids are tapered, her symptoms may return. Additionally, she will likely experience more episodes into the future, possibly increasing in frequency, severity and poor responsiveness to oral medications. I explained that there is a slight possibility, approximately 1% per year of significant and irreversible progression. I discussed the role of surgical intervention at one or more levels and discussed anterior, posterior and combined approaches with them in great detail. While a posterior decompression and fusion with correction of Lordosis may ultimately be required, her acute symptoms are likely coming from C45 and to a lesser extent C67. If she does not experience relief from her acute pain management, there is a role for Anterior Cervical Decompression and Fusion. I explained that it would not be advised to leave C56 untreated between 2 levels which were decompressed and stabilized. Although, 3 level ACDF may be considered , another option for treatment could consist of C5 & C6 Corpectomies, with episcopalian of Lordosis and Reconstruction using a PEEK cage and anterior plating. I explained the risks, benefits and alternatives to C5 & C6 Corpectomies, with episcopalian of Lordosis and Reconstruction using a PEEK cage and anterior plating in detail. I explained that the risks included, but were not limited to: , coma, paralysis, bleeding, infection, CSF leakage possibly requiring spinal drainage or additional surgery, instrumentaiton migration/malposition/malfunction and failure to improve. I explained that a C3- 7 laminectomies and fusion may be required in the future. I quoted a 1% risk of permanent major morbidity or mortality and 95% chance of improvement or cessation of likely progression and a 4% chance of minimal improvement. All questions were answered. I offered her the option of seeking another opinion or another surgeon. Informed consent was obtained. The patient and spouse will contemplate their options and understand my recommendation while that surgery is not mandatory to prevent imminent deterioration, the risk/benefit analysis of her condition would suggest that as long as surgery can be performed with a low risk profile, she would be slightly better off going forward with treatment versus with the natural history.
[2017-07-06] MEDS: DEXAMETHASONE SOD PHOSPHATE 10 MG/1 ML VIAL IVPUSH SCH (03:00)
[2017-07-06] MEDS: CYCLOBENZAPRINE HCL 10 MG TABLET (FP) PO SCH (06:16)
[2017-07-06 06:31] VITALS: PULSE 80
[2017-07-06] MEDS ORDERED: ALBUTEROL SO4 18 GM HFA INHALER IH PRN (08:12)
[2017-07-06] MEDS ORDERED: oxyCODONE HCL 5 MG TABLET PO PRN (08:13)
[2017-07-06] MEDS ORDERED: DOCUSATE SODIUM 100 MG CAPSULE (FP) PO PRN (08:13)
--- NOTE | 2017-07-06 08:25 | DS ---
Physical Examination Vital Signs: Vital Signs Temperature 98.4 F 07/06/17 06:30 Pulse Rate 80 07/06/17 06:30 Respiratory Rate 20 07/06/17 06:30 Blood Pressure 139/77 07/06/17 06:30 O2 Sat by Pulse Oximetry (%) 98 07/05/17 02:00 Labs: CBC, BMP 07/04/17 06:20 07/04/17 06:20 Discharge Summary Reason For Visit: NECK PAIN Current Active Problems Carotid stenosis, asymptomatic (Acute) Cervical spinal mass (Acute) Cervical spinal stenosis (Acute) HTN (hypertension) (Acute) Neck pain (Acute) Condition: Improved - Instructions Referrals: Pancho De La Cruz MD [Primary Care Provider] - 1 Week Servando Hong MD, FAANS [Staff Physician] - Phillip Jovel MD [Staff Physician] - Valentina Madison MD [Staff Physician] - Disposition: HOME - Home Medications Comprehensive Discharge Medication List: Ambulatory Orders Aspirin [ASA -] 81 mg PO DAILY 10/24/14 Esomeprazole Mag Trihydrate [Nexium] 40 mg PO DAILY 10/24/14 Olmesartan/Hydrochlorothiazide [Benicar Hct 40-12.5 mg Tablet] 1 each PO DAILY 10/24/14 Albuterol Sulfate Inhaler - [Ventolin HFA Inhaler -] 2 puff IH Q4H PRN inhaler 07/06/17 Cyclobenzaprine HCl [Flexeril -] 10 mg PO TID #60 tablet 07/06/17 Dexamethasone [Decadron -] 10 mg PO TID #60 tablet 07/06/17 Docusate Sodium [Colace -] 100 mg PO BID PRN capsule 07/06/17 Gabapentin [Neurontin -] 300 mg PO BID #60 capsule 07/06/17 Guaifenesin Dm [Robitussin Dm -] 10 ml PO Q6H PRN cup 07/06/17 Lidocaine 5% Patch [Lidoderm -] 1 patch TP DAILY #30 patch 07/06/17 Oxycodone HCl [Roxicodone -] 5 mg PO Q6H PRN #30 tablet MDD 4 07/06/17
--- NOTE | 2017-07-06 09:53 | PN ---
Progress Note (short form) - Note Progress Note: Neurology History of Present Illness 71F with pmh of HTN presents with right shoulder pain since Monday night that progressively go up to her right neck which is now stuck in neutral position. She went to the Urgent care yesterday morning and was given a prescription for cyclobenzaprine for muscle spasm without relief. She completed MRI of Upper ext ten days ago which I reviewed and showed lipoma but not major structural injuries of shoulder. Her symptoms seem more consistent with Cervicalgia and Cervical radiculopathy. MRI C spine completed and reviewed with patient. Demonstrated C4/C5 moderate to severe stenosis along with mass effect on L C5 nerve root, though her pain is on the R side. There is facet arthropathy. Normal spinal cord signal. NSGY consulted and note reviewed. No surgical invervention as this time. Muscle relaxant should be continued and provide relief in conjuntion with pain medication. Lidocaine patch had been ordered with minimal relief. She remains with muscle spasm and stiff neck. Discussed further treatment options inlcuding surgery and injections as well. Remains on course of Decadron, 10mg Q8hrs with some relief and less stiff again today with better range of motion. Carotid dopplers completed and reviewed, mentioned 50-69% stenosis of L ICA. Vascular surgery note reviewed, reports this is normal, no surgical intervention. Patient for discharge today. Active Medications Albuterol Sulfate (Ventolin Hfa Inhaler -) 2 puff IH Q4H PRN PRN Reason: SHORT OF BREATH/WHEEZING Albuterol/Ipratropium (Duoneb -) 1 amp NEB Q6H PRN PRN Reason: SHORTNESS OF BREATH Last Admin: 07/05/17 21:30 Dose: 1 amp Cyclobenzaprine HCl (Flexeril -) 10 mg PO TID [facility] Last Admin: 07/06/17 06:16 Dose: 10 mg Dexamethasone (Decadron -) 10 mg PO TID [facility] Docusate Sodium (Colace -) 100 mg PO BID PRN PRN Reason: CONSTIPATION Gabapentin (Neurontin -) 300 mg PO BID [facility] Last Admin: 07/05/17 21:24 Dose: 300 mg Guaifenesin (Robitussin Dm -) 10 ml PO Q6H PRN PRN Reason: COUGH Lidocaine (Lidoderm Patch -) 1 patch TP DAILY [facility] Last Admin: 07/05/17 09:29 Dose: 1 patch Miscellaneous (Lidoderm Patch Removal) 1 each MC DAILY@2200 [facility] Last Admin: 07/05/17 21:24 Dose: Not Given Oxycodone HCl (Roxicodone -) 5 mg PO Q6H PRN PRN Reason: PAIN Valsartan (Diovan -) 80 mg PO DAILY [facility] Last Admin: 07/05/17 09:29 Dose: 80 mg *Physical Exam Vital Signs Temperature 98.4 F 07/06/17 06:30 Pulse Rate 80 07/06/17 06:30 Respiratory Rate 20 07/06/17 06:30 Blood Pressure 139/77 07/06/17 06:30 O2 Sat by Pulse Oximetry (%) 98 07/05/17 02:00 - Physical Exam General Appearance: Yes: Nourished, Appropriately Dressed, Moderate Distress HEENT: positive: Other (tender neck, rigid) Respiratory/Chest: positive: Lungs Clear, Normal Breath Sounds. negative: Chest Tender Cardiovascular: positive: Regular Rhythm, Tachycardia Gastrointestinal/Abdominal: positive: Normal Bowel Sounds, Flat, Soft. negative : Tender Neurologic: positive: Fully Oriented, Alert, Normal Mood/Affect, limited range of motion of C spine, strenght intact, sensory normal, gait deferred CBCD WBC 8.8 K/mm3 (4.0-10.0) 07/04/17 06:20 RBC 4.11 M/mm3 (3.60-5.2) 07/04/17 06:20 Hgb 11.4 GM/dL (10.7-15.3) D 07/04/17 06:20 Hct 34.0 % (32.4-45.2) 07/04/17 06:20 MCV 82.7 fl (80-96) 07/04/17 06:20 MCHC 33.7 g/dl (32.0-36.0) 07/04/17 06:20 RDW 13.6 % (11.6-15.6) 07/04/17 06:20 Plt Count 184 K/MM3 (134-434) D 07/04/17 06:20 MPV 8.5 fl (7.5-11.1) 07/04/17 06:20 CMP Sodium 137 mmol/L (136-145) 07/04/17 06:20 Potassium 3.8 mmol/L (3.5-5.1) 07/04/17 06:20 Chloride 101 mmol/L (98-107) 07/04/17 06:20 Carbon Dioxide 34 mmol/L (21-32) H 07/04/17 06:20 Anion Gap 2 (8-16) L 07/04/17 06:20 BUN 11 mg/dL (7-18) 07/04/17 06:20 Creatinine 0.6 mg/dL (0.55-1.02) 07/04/17 06:20 Creat Clearance w eGFR > 60 (>60) 07/04/17 06:20 Calcium 8.3 mg/dL (8.5-10.1) L 07/04/17 06:20 Total Bilirubin 0.8 mg/dL (0.2-1.0) 07/04/17 06:20 AST 10 U/L (15-37) L D 07/04/17 06:20 ALT 25 U/L (12-78) 07/04/17 06:20 Alkaline Phosphatase 80 U/L (45-117) 07/04/17 06:20 Total Protein 6.0 g/dl (6.4-8.2) L 07/04/17 06:20 Albumin 3.0 g/dl (3.4-5.0) L D 07/04/17 06:20 MRI Upper Ext reviewed Carotid Dopplers reviewed MRI C spine reviewed Medical Decision Making 71F with pmh of HTN presents with right shoulder pain since Monday night that progressively go up to her right neck which is now stuck in neutral position. She went to the Urgent care yesterday morning and was given a prescription for cyclobenzaprine for muscle spasm without relief. She completed MRI of Upper ext ten days ago which I reviewed and showed lipoma but not major structural injuries of shoulder. Her symptoms seem more consistent with Cervicalgia and Cervical radiculopathy. MRI C spine reviewed and discussed as above. Discussed treatment options including injections. NSGY note reviewed. Continue Cyclobenzaprine 10mg up to three times per day. Will add gabapentin 300mg twice a day for cervical radiculopathy into RUE. Physical therapy may be of benefit once muscle spasm improves. Also recommended cold compresses and/or heat therapy. No sudden head movements. Decadron short course to be continued at 10mg Q8 hrs. Is less stiff in her C spine today and improved range of motion. No surgical intervention for Carotid doppler L ICA 50-69% stenosis as per vascular surgery note. For discharge today, follow up information provided.
[2017-07-06] MEDS ORDERED: PT OWN MED DRAWER 7, Y5N ONE (09:59)
[2017-07-06] MEDS: GABAPENTIN 300 MG CAPSULE (FP) PO SCH (10:02)
[2017-07-06] MEDS: VALSARTAN 80 MG TABLET (UD) PO SCH (10:02)
[2017-07-06] MEDS: LIDOCAINE 5% TOPICAL PATCH TP SCH (10:06)
[2017-07-06 10:39] VITALS: BP 147/78; TEMP 97.9
--- NOTE | 2017-07-06 12:10 | PN ---
Progress Note (short form) - Note Progress Note: patient right arm note at iv site small lesion noted no tenderness no discharge told patient to apply bacitracin ointment on it twice daily for 4 days nad can use warm compresses as well Problem List - Problems (1) Neck pain Code(s): M54.2 - CERVICALGIA (2) HTN (hypertension) Code(s): I10 - ESSENTIAL (PRIMARY) HYPERTENSION
[2017-07-06] MEDS ORDERED: DEXAMETHASONE 4 MG TABLET (FP) PO SCH (14:00)
--- NOTE | 2017-07-06 21:24 | PN ---
Progress Note (short form) - Note Progress Note: Patient continues to improve with medical management. Agree with continued conservative care. Discussed signs and symptoms which might prompt re-evaluation
== END 2017-07-06 13:43 | disposition home or self-care (01) | DRG 552 ==
LOC: JER 10:09 → JERFT 10:09 → JERBED 15:16 → J8W 18:25 → J6S 20:13 → OBSVTOIN 07-05 17:56
PROVIDERS: ADMIT Student in an Organized Health Care Education/Training Program; ATTEND Student in an Organized Health Care Education/Training Program
DX: M47.892 Other spondylosis, cervical region (principal); G95.9 Disease of spinal cord, unspecified; I65.22 Occlusion and stenosis of left carotid artery; I10 Essential (primary) hypertension; M48.02 Spinal stenosis, cervical region; M54.2 Cervicalgia
CPT/HCPCS: 36415; 71020-TC; 71101-TC-RT; 72141-TC; 80053; 81003; 82550; 83735; 84100; 84484; 85025; 85610; 85730; 87086; 93005; 93010; 93880-TC; 94640; 97116-GP; 97161-GP; 99283-25; G0378

== ENCOUNTER 2018-10-02 09:10 | Inpatient (IN) | payer OTHER ==
[2018-09-17 17:20] VITALS: BMI 29.6
--- NOTE | 2018-10-02 08:04 | HP ---
[facility] - Chief Complaint Chief Complaint: right knee pain - Past Medical History Allergies/Adverse Reactions: Allergies Allergy/AdvReac Type Severity Reaction Status Date / Time No Known Allergies Allergy Verified 09/17/18 17:10 - Current Medications Current Medications: Home Medications Medication Instructions Recorded Aspirin [ASA -] 81 mg PO DAILY 10/24/14 Amlodipine Besylate [Norvasc -] 5 mg PO DAILY 09/17/18 Ascorbate Calcium/Bioflavonoid 1 each PO DAILY 09/17/18 [Francesca-C 1,000 mg Tablet] Beta-Carotene(A) W-C and E/Min 1 tab PO DAILY 09/17/18 [Ocuvite (Nf)] Cholecalciferol (Vitamin D3) 400 unit PO DAILY 09/17/18 [Vitamin D3 -] Ferrous Sulfate [Iron] 325 mg PO DAILY 09/17/18 Metformin HCl [Metformin HCl ER] 500 mg PO DAILY 09/17/18 Multivitamins [Tab-A-Vit -] 1 tab PO DAILY 09/17/18 Olmesartan/Hydrochlorothiazide 40 mg PO DAILY 09/17/18 [Benicar Hct 40-12.5 mg Tablet] Omeprazole 40 mg PO DAILY 09/17/18 Rosuvastatin [Crestor -] 5 mg PO DAILY 09/17/18 Tramadol HCl 1 each PO PRN PRN 09/17/18 Ubidecarenone [Co Q-10] 400 mg PO DAILY 09/17/18 Satellite Physical Exam - Physical Examination General Appearance: Well Nourished, Well Developed, Alert & Oriented x3 ENT: Clear Lung: Normal air movement Heart: Regular rate & rhythm Extremities: Other (right knee - + swelling, + ttp, decr rom ,nvi xrays show grade 4 tricompartmental djd) Neurological: Intact, Alert, Oriented Satellite Impression/Plan - Impression/Plan Impression: right knee djd Operative Procedure: right philipp tkr Date to be Performed: 10/02/18
[2018-10-02] MEDS ORDERED: CELECOXIB 200 MG CAPSULE PO ONE (09:33)
[2018-10-02] MEDS ORDERED: GABAPENTIN 300 MG CAPSULE (FP) PO ONE (09:33)
[2018-10-02] MEDS ORDERED: CEFAZOLIN 2 GM in DEXTROSE 5%-WATER - 50 ML IVPB ONE (09:33)
[2018-10-02] MEDS ORDERED: oxyCODONE HCL 10 MG SUSTAINED ACTING TABLET PO ONE (09:33)
[2018-10-02] MEDS ORDERED: TRANEXAMIC ACID 1000 MG/10 ML VIAL IVPUSH ONE (09:33)
[2018-10-02] MEDS ORDERED: SODIUM CHLORIDE 0.9% P/F 10 ML VIAL IJ ONE (10:10)
[2018-10-02] MEDS ORDERED: BUPIVACAINE LIPOSOME/PF (EXPAREL) 266 MG/20 ML VIAL ONE (10:10)
[2018-10-02] MEDS ORDERED: MIDAZOLAM HCL 2 MG/2 ML SINGLE DOSE VIAL ONE ×2 (10:10→11:27)
[2018-10-02] MEDS ORDERED: ceFAZolin SODIUM 1 GM VIAL ONE (10:16)
[2018-10-02] MEDS ORDERED: VANCOMYCIN 1,000 MG VIAL (RESTRICTED TO ID ONLY) ONE (10:16)
[2018-10-02] MEDS ORDERED: MAGNESIUM HYDROX 2400MG/30ML ORAL SUSPENSION 30 ML CUP PO PRN (11:31)
[2018-10-02] MEDS ORDERED: ONDANSETRON 4 MG/2 ML VIAL IVPUSH PRN ×2 (11:31→15:01)
[2018-10-02] MEDS ORDERED: MAG HYDROX/AL HYDROX/SIMETH 30 ML UNIT-DOSE CUP PO PRN (11:31)
[2018-10-02] MEDS ORDERED: LACTATED RINGERS SOLUTION 1,000 ML IV SCH (11:45)
[2018-10-02] MEDS ORDERED: VANCOMYCIN 1,000 MG VIAL (RESTRICTED TO ID ONLY) IVPB ONE (12:47)
--- NOTE | 2018-10-02 13:18 | OP ---
Operative Note - Note: Operative Date: 10/02/18 (yusuf) Pre-Operative Diagnosis: right knee djd Operation: right philipp tkr Post-Operative Diagnosis: Same as Pre-op Surgeon: Adis Werner Hydraulic Press Operator: Andres Moses Anesthesiologist/PSYCHODRAMATIST: Tamir King Anesthesia: Spinal, Local Specimens Removed: bone fragments Estimated Blood Loss (mls): 100 Operative Report Dictated: Yes
[2018-10-02] MEDS ORDERED: ACETAMINOPHEN 325 MG TABLET (FP) ONE (14:02)
[2018-10-02] MEDS ORDERED: PROMETHAZINE HCL 25 MG/1 ML VIAL IVPUSH PRN (15:01)
[2018-10-02] MEDS ORDERED: oxyCODONE HCL 5 MG TABLET PO PRN (15:01)
[2018-10-02] MEDS: ACETAMINOPHEN 325 MG TABLET (FP) PO SCH ×2 (15:19→21:00)
[2018-10-02] MEDS: oxyCODONE HCL 5 MG TABLET PO PRN ×2 (16:09→20:00)
[2018-10-02] MEDS: INSULIN SLIDING SCALE (NOVOLOG) 1 VIAL SQ SCH ×2 (17:32→22:46)
[2018-10-02] MEDS: CEFAZOLIN 2 GM/D5W 2 GM/50 ML ML IVPB SCH (18:54)
--- NOTE | 2018-10-02 20:53 | SPEC ---
DATE OF OPERATION: 10/02/2018 PREOPERATIVE DIAGNOSIS: Degenerative joint disease, right knee. POSTOPERATIVE DIAGNOSIS: Degenerative joint disease, right knee. PROCEDURE: Right total knee replacement with robotic-assisted navigation (MAKOplasty). SURGICAL ATTENDING: Adis Werner MD LEARNING DISABLED TEACHER: LEA Noel ANESTHESIA: Regional and spinal. CLOSURE: A cemented Triathlon knee system with a 3 femur, 4 tibia, 9 polyethylene, 32 patella, No. 1 Vicryl fascia, 0 and 2-0 subcutaneous, 3-0 Monocryl subcuticular with skin glue for skin, 4-0 undyed Vicryl for pin sites. ESTIMATED BLOOD LOSS: Less than 100 mL. COMPLICATIONS: None. CONDITION: To recovery room in stable condition. DESCRIPTION OF OPERATIVE PROCEDURE: Patient was taken to the operating room on October 02, 2018. Regional and general anesthesia was administered by the anesthesiologist. IV Kefzol and TXA were administered by the anesthesiologist. Well-padded pneumatic tourniquet was placed on the proximal thigh. The right lower extremity was prepped and draped in the usual sterile fashion. The leg was exsanguinated with an Esmarch bandage, and tourniquet was inflated to 275 mmHg. A 12- to 15-cm longitudinal midline incision was incised while centered over the patella. The dissection was carried down to the level of the extensor mechanism with sufficient flaps made to adequately perform the procedure. A medial parapatellar arthrotomy was then performed. We made a cuff of tissue on the patella for later closure. The patella was inverted, the knee was flexed up. The fat pad was excised. The subperiosteal dissection was on the anteromedial proximal tibia around towards the direction of the MCL. The ACL and the PCL were transected and debrided. The meniscal remnants of the medial and lateral meniscus were debrided and removed. This allowed the knee to be able to "be brought forward." The checkpoints were malleted into the tibia and into the femur. Two threaded pins were drilled anteroposteriorly proximal to the knee through the previous incision, through the anterior cortex, then just engaging the posterior cortex. To these pins was assembled the femoral navigation array. One handbreadth below the tibial tubercle, 2 stab incisions were used to drill 2 threaded pins in parallel fashion into the tibia, again through the anterior cortex and just engaging the posterior cortex. To these pins was fastened the tibial arrays. The knee was then registered with the navigation device with center of rotation of the hip, medial and lateral malleoli, both checkpoints, and multiple points on both the femur and the tibia to ensure excellent registration. The navigation device was directed off the "top of the bubbles" on both the femur and the tibia. The navigation passed within less than 0.5 mm to plan. The knee was then thoroughly inspected to remove all osteophytes both medially, laterally, and on the femur and the tibia, and whatever osteophytes were available for dissection. The knee was then taken to extension and to flexion and stressed in both varus and valgus to assess flexion gaps. The virtual position of the components on the navigation device were then manipulated to optimize the position and to ensure equal gaps in both flexion and extension, and both medially and laterally. The robot was then brought into the field and was registered. The cuts were then made both on the femur and on the tibia as to plan. All osteophytes posteriorly were then removed as well. The gaps were then measured again in flexion and extension to be equal in both flexion and extension and medial and laterally. The femoral notch was then made, as we were doing a posterior stabilizing component, with the appropriate sized box. Trial reduction of the femur achieved excellent [id number] fit. A tibial baseplate of appropriate polyethylene thickness was "floated in the knee." It was ensured to be in the excellent position by navigation devices and was pinned in place. The knee was taken through a range of motion and found to have excellent stability throughout flexion and extension. The patella was calibrated for thickness and osteotomized down to the appropriate level. The appropriate lollipop was used to drill the lug holes in the patella and the trial button was applied. The knee was taken through a range of motion and found to have excellent tracking of the patella, and patella from full extension to full flexion. Trial components were removed, the keel was punched and drilled, and a sclerotic bone on the tibia was drilled to help with cement interdigitation. The knee was thoroughly irrigated with the pulse antibiotic camera mechanic. The real components were then cemented in using monitored arrangement cement techniques with antibiotic cement, and pressurization and extension. After the cement was hardened, the knee was thoroughly inspected to remove any extra cement. The real polyethylene component was then clipped into place. Range of motion, stability, and tracking were as described earlier. The checkpoints and the pins were removed. The knee was thoroughly irrigated with antibiotic irrigation. Vancomycin powder was placed into the knee for antibiotic prophylaxis. The medial parapatellar arthrotomy was then closed using number 1 Vicryl interrupted suture. After closure of the deep layer, the knee was taken through a range of motion, and found to have excellent stability of the patella with no dislocation and no undue tension on the repair. The subcutaneous was pulse antibiotic irrigated, and was then closed with 2-0 Vicryl, 3-0 Monocryl subcuticular with the skin glue for the skin. The distal tibial pin site was irrigated thoroughly as well and then closed with 4-0 undyed Vicryl. A sterile Aquacel dressing was applied, followed by a Song dressing. Tourniquet was deflated. Total tourniquet time was approximately 75 minutes. No complications. Patient was awakened from anesthesia and transferred to recovery room in stable condition. Postoperative x-rays revealed excellent position of the components. Malou [id number]
[2018-10-02] MEDS: oxyCODONE HCL 10 MG SUSTAINED ACTING TABLET PO SCH (21:29)
[2018-10-02] MEDS: SENNOSIDES/DOCUSATE COMBO (SENNA PLUS) TABLET (UD) PO SCH (21:29)
[2018-10-03] MEDS: CEFAZOLIN 2 GM/D5W 2 GM/50 ML ML IVPB SCH (03:00)
[2018-10-03] MEDS: ACETAMINOPHEN 325 MG TABLET (FP) PO SCH ×4 (03:25→21:40)
[2018-10-03] MEDS: oxyCODONE HCL 5 MG TABLET PO PRN (05:00)
[2018-10-03] MEDS: INSULIN SLIDING SCALE (NOVOLOG) 1 VIAL SQ SCH ×4 (06:46→22:22)
[2018-10-03 07:50] LABS: HEMATOCRIT 33.5 % (32.4-45.2); HEMOGLOBIN 10.9 GM/dl (10.7-15.3); MCH 27.6 pg (25.7-33.7); MCHC 32.5 g/dl (32.0-36.0); MEAN CELL VOLUME 85.2 fl (80-96); MEAN PLT VOLUME 8.6 fl (7.5-11.1); PLATELET COUNT 214 K/MM3 (134-434); RBC 3.93 M/mm3 (3.60-5.2); RDW 12.1 % (11.6-15.6)
[2018-10-03] MEDS: ASPIRIN 325 MG TABLET PO SCH (08:57)
[2018-10-03] MEDS: KETOROLAC TROMETHAMINE 30 MG/1 ML VIAL IVPUSH SCH ×3 (08:57→19:42)
--- NOTE | 2018-10-03 09:33 | PN ---
Progress Note (short form) - Note Progress Note: Ortho Pt seen and examined s/p right philipp tkr pod #1 Selected Entries 10/03/18 07:00 Temperature 98.4 F Pulse Rate 94 H Respiratory 20 Rate Blood Pressure 141/59 L Laboratory Tests 10/03/18 07:10 WBC 10.0 Hgb 10.9 Hct 33.5 D Plt Count 214 dressing c/d/i, calf soft, nt rom 0-30, nvi a/p PT dvt ppx pain control d/c planning
[2018-10-03] MEDS: amLODIPine BESYLATE 5 MG TABLET (FP) PO SCH (09:53)
[2018-10-03] MEDS: MULTIVITAMINS (DAILY MVI) TABLET (FP) PO SCH (09:53)
[2018-10-03] MEDS: HYDROCHLOROTHIAZIDE 12.5 MG CAPSULE (FP) PO SCH (09:53)
[2018-10-03] MEDS: FERROUS SO4 325 MG TABLET (FP) PO SCH (09:53)
[2018-10-03] MEDS: ROSUVASTATIN CA 5 MG TABLET (FP) PO SCH (09:53)
[2018-10-03] MEDS: PANTOPRAZOLE 40 MG TABLET (FP) PO SCH (09:53)
[2018-10-03] MEDS: oxyCODONE HCL 10 MG SUSTAINED ACTING TABLET PO SCH ×2 (09:53→22:22)
[2018-10-03] MEDS: SENNOSIDES/DOCUSATE COMBO (SENNA PLUS) TABLET (UD) PO SCH ×2 (09:53→22:23)
[2018-10-03] MEDS ORDERED: PATIENT'S OWN MEDICATION (NON-FORMULARY) (Olmesartan/Hydrochlorothiazide [Benicar Hct 40-1 PO SCH (10:00)
[2018-10-03] MEDS ORDERED: PATIENT'S OWN MEDICATION (NON-FORMULARY) (Ferrous Sulfate [Iron] 325 MG) PO SCH (10:00)
[2018-10-03] MEDS ORDERED: PATIENT'S OWN MEDICATION (NON-FORMULARY) (Omeprazole [Omeprazole] 40 MG) PO SCH (10:00)
--- NOTE | 2018-10-03 14:13 | PN ---
Progress Note (short form) - Note Progress Note: ANESTEHSIA POSTOP 72 yo female POD#1 s/p Right TKA Doing well. Sitting in chair, tolerating PO, pain adequately controlled VSS, afebrile Continue current care, encouraged active participation in PT and use of IS
[2018-10-03] MEDS: VALSARTAN 160 MG TABLET (UD) PO SCH (15:09)
[2018-10-04] MEDS: ACETAMINOPHEN 325 MG TABLET (FP) PO SCH ×4 (02:12→21:22)
[2018-10-04] MEDS: KETOROLAC TROMETHAMINE 30 MG/1 ML VIAL IVPUSH SCH (02:13)
[2018-10-04] MEDS: INSULIN SLIDING SCALE (NOVOLOG) 1 VIAL SQ SCH ×4 (06:33→22:02)
--- NOTE | 2018-10-04 07:26 | PN ---
Progress Note (short form) - Note Progress Note: Ortho Pt seen and examined s/p right philipp tkr pod #2 Selected Entries 10/04/18 06:00 Temperature 98.1 F Pulse Rate 108 H Respiratory 18 Rate Blood Pressure 114/60 Laboratory Tests 10/04/18 06:55 WBC Pending Hgb Pending Hct Pending Plt Count Pending dressing c/d/i, calf soft, nt rom 0-30, nvi a/p PT dvt ppx pain control d/c planning to snf
[2018-10-04 08:37] LABS: HEMATOCRIT 30.1 % (32.4-45.2); HEMOGLOBIN 9.6 GM/dl (10.7-15.3); MCH 27.3 pg (25.7-33.7); MCHC 31.9 g/dl (32.0-36.0); MEAN CELL VOLUME 85.6 fl (80-96); MEAN PLT VOLUME 9.1 fl (7.5-11.1); PLATELET COUNT 182 K/MM3 (134-434); RBC 3.52 M/mm3 (3.60-5.2); WHITE BLOOD COUNT 10.8 K/mm3 (4.0-10.8)
[2018-10-04] MEDS: ASPIRIN 325 MG TABLET PO SCH (08:40)
[2018-10-04] MEDS: oxyCODONE HCL 10 MG SUSTAINED ACTING TABLET PO SCH ×2 (09:45→21:23)
[2018-10-04] MEDS: amLODIPine BESYLATE 5 MG TABLET (FP) PO SCH (09:45)
[2018-10-04] MEDS: ROSUVASTATIN CA 5 MG TABLET (FP) PO SCH (09:45)
[2018-10-04] MEDS: HYDROCHLOROTHIAZIDE 12.5 MG CAPSULE (FP) PO SCH (09:45)
[2018-10-04] MEDS: PANTOPRAZOLE 40 MG TABLET (FP) PO SCH (09:45)
[2018-10-04] MEDS: FERROUS SO4 325 MG TABLET (FP) PO SCH (09:45)
[2018-10-04] MEDS: SENNOSIDES/DOCUSATE COMBO (SENNA PLUS) TABLET (UD) PO SCH ×3 (09:45→21:23)
[2018-10-04] MEDS: MULTIVITAMINS (DAILY MVI) TABLET (FP) PO SCH (09:45)
[2018-10-04] MEDS: VALSARTAN 160 MG TABLET (UD) PO SCH (09:50)
[2018-10-04] MEDS: oxyCODONE HCL 5 MG TABLET PO PRN (17:45)
[2018-10-05] MEDS: ACETAMINOPHEN 325 MG TABLET (FP) PO SCH ×2 (03:00→09:34)
[2018-10-05 06:57] VITALS: BP 141/80; PULSE 109; TEMP 98.1
[2018-10-05] MEDS: INSULIN SLIDING SCALE (NOVOLOG) 1 VIAL SQ SCH (07:03)
[2018-10-05] MEDS: VALSARTAN 160 MG TABLET (UD) PO SCH (09:36)
[2018-10-05] MEDS: ASPIRIN 325 MG TABLET PO SCH (09:36)
[2018-10-05] MEDS: HYDROCHLOROTHIAZIDE 12.5 MG CAPSULE (FP) PO SCH (09:37)
[2018-10-05] MEDS: FERROUS SO4 325 MG TABLET (FP) PO SCH (09:37)
[2018-10-05] MEDS: amLODIPine BESYLATE 5 MG TABLET (FP) PO SCH (09:37)
[2018-10-05] MEDS: PANTOPRAZOLE 40 MG TABLET (FP) PO SCH (09:38)
[2018-10-05] MEDS: MULTIVITAMINS (DAILY MVI) TABLET (FP) PO SCH (09:38)
[2018-10-05] MEDS: oxyCODONE HCL 10 MG SUSTAINED ACTING TABLET PO SCH (09:38)
[2018-10-05] MEDS: ROSUVASTATIN CA 5 MG TABLET (FP) PO SCH (09:39)
--- NOTE | 2018-10-05 10:02 | PN ---
Progress Note (short form) - Note Progress Note: Ortho Pt seen and examined s/p right philipp tkr pod #3 Selected Entries 10/05/18 06:00 Temperature 98.1 F Pulse Rate 109 H Respiratory 18 Rate Blood Pressure 141/80 Laboratory Tests 10/04/18 06:55 WBC 10.8 Hgb 9.6 L Hct 30.1 L Plt Count 182 dressing c/d/i, calf soft, nt rom 0-30, nvi a/p PT dvt ppx pain control d/c to snf today
--- NOTE | 2018-10-05 10:03 | DS ---
Physical Examination Vital Signs: Vital Signs Temperature 98.1 F 10/05/18 06:00 Pulse Rate 109 H 10/05/18 06:00 Respiratory Rate 18 10/05/18 06:00 Blood Pressure 141/80 10/05/18 06:00 O2 Sat by Pulse Oximetry (%) 96 10/05/18 06:00 Labs: CBC, BMP 10/04/18 06:55 Discharge Summary Reason For Visit: OSTEOARTHRITIS Procedures: Principal: right tkr Hospital Course: admitted for elective right philipp tkr, uneventful post-op, stable for d/c Condition: Good - Instructions Diet, Activity, Other Instructions: Post-op Instructions-Total Hip Replacement Call the office for a follow-up appointment in 1 week - [phone] Aspirin 325mg daily for 6 weeks. Pain medication was sent into your pharmacy. Apply Graduated Compression Stockings (TEDs) to both lower extremities- remove daily for hygiene ONLY Apply Sequential Compression Device (SCDs) to both Lower extremities remove for PT and hygiene ONLY Apply cold packs to affected area for 15 minutes every 2 hours. Physical Therapist will come to your home for the first 5 days. You will be set up with outpatient PT at your first post-operative visit. Patient may ambulate as tolerated-encourage self care (at least every 2-3 hours while awake) with walker or cane Maintain Aquacel (waterproof) dressing to operative wound (will be removed by surgeon at first office visit) Shower with Aquacel dressing in place-if Aquacel integrity compromised, remove and apply dry sterile dressing and notify Orthopedist. DO NOT SHOWER unless Orthopedists approves without Aquacel dressing CONTACT THE OFFICE FOR ANY CHANGE IN YOUR CONDITION (for example-fever greater than 102 degrees, excessive bleeding from operative site, purulent drainage, severe swelling or pain) GO TO THE EMERGENCY ROOM IF THERE IS A MEDICAL EMERGENCY Hip Precautions: * Keep a rolled towel under affected heel while in bed or chair (to keep knee in extension) * Dependent upon approach: * Posterior - do not cross legs; do not sit on low chairs or toilets. * If you have any questions, please do not hesitate to call the office - [phone]. Referrals: Adis Werner MD [Staff Physician] - Disposition: VNS/HOME HEALTH CARE - Home Medications Comprehensive Discharge Medication List: Ambulatory Orders Amlodipine Besylate [Norvasc -] 5 mg PO DAILY 09/17/18 Ascorbate Calcium/Bioflavonoid [Francesca-C 1,000 mg Tablet] 1 each PO DAILY Beta-Carotene(A) W-C and E/Min [Ocuvite (Nf) -] 1 tab PO DAILY 09/17/18 Cholecalciferol (Vitamin D3) [Vitamin D -] 400 unit PO DAILY 09/17/18 Ferrous Sulfate [Iron] 325 mg PO DAILY 09/17/18 Metformin HCl [Metformin HCl ER] 500 mg PO DAILY 09/17/18 Multivitamins [Multivit ([facility] Formulary)] 1 tab PO DAILY 09/17/18 Olmesartan/Hydrochlorothiazide [Benicar Hct 40-12.5 mg Tablet] 40 mg PO DAILY Omeprazole 40 mg PO DAILY 09/17/18 Rosuvastatin [Crestor -] 5 mg PO DAILY 09/17/18 Tramadol HCl 1 each PO PRN PRN 09/17/18 Ubidecarenone [Co Q-10] 400 mg PO DAILY 09/17/18 Aspirin [ASA -] 325 mg PO DAILY@0800 tablet 10/05/18 oxyCODONE HCL [Roxicodone -] 5 mg PO Q4H PRN tablet MDD 6 10/05/18
--- NOTE | 2018-10-05 16:24 | PATH ---
Surgical Pathology Report Patient Name: MONIKA SALMERON Med. Rec. #: [id number] /Age/Gender: 1945 (Age: 72) / F Account: [id number] Location: [facility] MED-SURG Taken: 10/02/2018 Received: 10/02/2018 Reported: 10/05/2018 Physicians: Adis Werner M.D. Specimen(s) Received RIGHT KNEE BONES Clinical History Right knee osteoarthritis Final Diagnosis KNEE BONES, RIGHT, TOTAL KNEE REPLACEMENT: DEGENERATIVE JOINT DISEASE. Electronically Signed Binta Patel M.D. Gross Description Received in formalin labeled "right knee bones," is 11.0 x 10.5 x 2.0 cm aggregate of multiple irregular portions of bone and soft tissue, consistent with knee bones. No areas of eburnation are identified. The articular surfaces are candelario-brown and diffusely granular. The underlying trabecular bone is yellow and hard. Software Implementation Project Manager sections are submitted in one cassette, following decalcification. 10/03/201810/03/2018
== END 2018-10-05 11:09 | DRG 470 ==
LOC: FM/S 09:10
PROVIDERS: ADMIT Orthopaedic Surgery; ATTEND Orthopaedic Surgery
PROC: 8E0Y0CZ Robotic Assisted Procedure of Lower Extremity, Open Approach (ICD-10-PCS; 2018-10-02)
PROC: 0SRC0J9 Replacement of Right Knee Joint with Synthetic Substitute, Cemented, Open Approach (ICD-10-PCS; principal; 2018-10-02 11:44)
DX: M17.11 Unilateral primary osteoarthritis, right knee (principal)
CPT/HCPCS: 36415; 73560-TC-RT-FY; 82962; 85027; 88304-TC; 88311-TC; 94760; 97116-GP; 97163-GP

== ENCOUNTER 2019-05-24 05:58 | Day surgery (SDC) | payer OTHER ==
[2019-05-14 17:27] VITALS: BMI 30.4
[2019-05-24] MEDS ORDERED: BUPIVICAINE 0.25%/MORPH PF/KETOROLAC - 51ML DISP.SYRINGE IA ONE ×3 (06:25→09:10)
[2019-05-24] MEDS ORDERED: TRANEXAMIC ACID 1000 MG/10 ML VIAL IVPUSH ONE (06:25)
[2019-05-24] MEDS ORDERED: CEFAZOLIN 2 GM in DEXTROSE 5%-WATER - 50 ML IVPB ONE (06:25)
[2019-05-24] MEDS ORDERED: CELECOXIB 200 MG CAPSULE PO ONE (06:25)
[2019-05-24] MEDS ORDERED: BUPIVACAINE HCL/PF 0.5% (5 MG/ML) 30 ML VIAL IJ ONE (06:52)
[2019-05-24] MEDS ORDERED: SODIUM CHLORIDE 0.9% P/F 10 ML VIAL IJ ONE (06:52)
[2019-05-24] MEDS ORDERED: MIDAZOLAM HCL 2 MG/2 ML SINGLE DOSE VIAL ONE ×2 (06:52→07:28)
[2019-05-24] MEDS ORDERED: PROPOFOL 20 ML ONE ×2 (07:27)
[2019-05-24] MEDS ORDERED: ceFAZolin SODIUM 1 GM VIAL ONE ×2 (07:27→07:42)
[2019-05-24] MEDS ORDERED: VANCOMYCIN 1,000 MG VIAL (RESTRICTED TO ID ONLY) ONE (07:42)
[2019-05-24] MEDS ORDERED: THROMBIN (RECOMBINANT) 5,000 UNIT VIAL TP ONE (07:42)
[2019-05-24] MEDS ORDERED: GELATIN, ABSORBABLE 12-7MM EACH SPONGE TP ONE ×2 (07:42→09:00)
[2019-05-24] MEDS ORDERED: MAG HYDROX/AL HYDROX/SIMETH 30 ML UNIT-DOSE CUP PO PRN (07:58)
[2019-05-24] MEDS ORDERED: ONDANSETRON 4 MG/2 ML VIAL IVPUSH PRN (07:58)
--- NOTE | 2019-05-24 07:58 | HP ---
Satellite [facility] - Chief Complaint Chief Complaint: left knee pain - Past Medical History Allergies/Adverse Reactions: Allergies Allergy/AdvReac Type Severity Reaction Status Date / Time No Known Allergies Allergy Verified 09/17/18 17:10 - Current Medications Current Medications: Home Medications Medication Instructions Recorded Amlodipine Besylate [Norvasc -] 5 mg PO DAILY 09/17/18 Ascorbate Calcium/Bioflavonoid 1 each PO DAILY 09/17/18 [Francesca-C 1,000 mg Tablet] Beta-Carotene(A) W-C and E/Min 1 tab PO DAILY 09/17/18 [Ocuvite (Nf) -] Cholecalciferol (Vitamin D3) 400 unit PO DAILY 09/17/18 [Vitamin D -] Ferrous Sulfate [Iron] 325 mg PO DAILY 09/17/18 Metformin HCl [Metformin HCl ER] 500 mg PO DAILY 09/17/18 Multivitamins [Multivit ([facility] 1 tab PO DAILY 09/17/18 Formulary)] Olmesartan/Hydrochlorothiazide 40 mg PO DAILY 09/17/18 [Benicar Hct 40-12.5 mg Tablet] Omeprazole 40 mg PO DAILY 09/17/18 Rosuvastatin [Crestor -] 5 mg PO DAILY 09/17/18 Ubidecarenone [Co Q-10] 400 mg PO DAILY 09/17/18 Aspirin [ASA -] 81 mg PO DAILY 05/14/19 traZODone HCL [Desyrel -] 25 mg PO HS 05/14/19 Satellite Physical Exam - Physical Examination Vital Signs: Vital Signs Period Temp Pulse Resp BP Sys/Zimmer Pulse Ox Last 24 Hr 98.4 F 84 18 138/77 96 General Appearance: Well Nourished, Well Developed, Alert & Oriented x3 ENT: Clear Lung: Normal air movement Heart: Regular rate & rhythm Extremities: Other (left knee- + swelling, + ttp medially, dec rom, nvi, xrays show grade 4 medial compartment djd) Neurological: Intact, Alert, Oriented Satellite Impression/Plan - Impression/Plan Impression: left knee medial djd Operative Procedure: left medial philipp ukr Date to be Performed: 05/24/19
[2019-05-24] MEDS ORDERED: LACTATED RINGERS SOLUTION 1,000 ML IV SCH (08:00)
[2019-05-24] MEDS ORDERED: THROMBIN (BOVINE) 5,000 UNIT VIAL TP ONE (09:00)
--- NOTE | 2019-05-24 09:36 | OP ---
Operative Note - Note: Operative Date: 05/24/19 (yusuf) Pre-Operative Diagnosis: left knee medial djd Operation: left medial philipp ukr Post-Operative Diagnosis: Same as Pre-op Surgeon: Adis Werner Sports Medicine Coordinator: Andres Moses Anesthesia: Spinal, Local Specimens Removed: bone fragments Estimated Blood Loss (mls): 50
[2019-05-24] MEDS ORDERED: SENNOSIDES/DOCUSATE COMBO (SENNA PLUS) TABLET (UD) PO SCH (10:00)
[2019-05-24] MEDS ORDERED: PATIENT'S OWN MEDICATION (NON-FORMULARY) (Olmesartan/Hydrochlorothiazide [Benicar Hct 40-1 PO SCH (10:00)
[2019-05-24] MEDS ORDERED: PANTOPRAZOLE 40 MG TABLET (FP) PO SCH (10:00)
[2019-05-24] MEDS ORDERED: FERROUS SO4 325 MG TABLET (FP) PO SCH (10:00)
[2019-05-24] MEDS ORDERED: PATIENT'S OWN MEDICATION (NON-FORMULARY) (Omeprazole [Omeprazole] 40 MG) PO SCH (10:00)
[2019-05-24] MEDS ORDERED: MULTIVITAMINS (DAILY MVI) TABLET (FP) PO SCH (10:00)
[2019-05-24] MEDS ORDERED: oxyCODONE HCL 5 MG TABLET PO PRN ×2 (10:59)
[2019-05-24] MEDS ORDERED: ACETAMINOPHEN 325 MG TABLET (FP) PO SCH (11:00)
[2019-05-24] MEDS: CEFAZOLIN 2 GM/D5W 2 GM/50 ML ML IVPB SCH (16:50)
[2019-05-24] MEDS: ACETAMINOPHEN 325 MG TABLET (FP) PO SCH (17:25)
[2019-05-24] MEDS: INSULIN SLIDING SCALE (NOVOLOG) 1 VIAL SQ SCH ×2 (18:42→21:50)
[2019-05-24] MEDS ORDERED: oxyCODONE HCL 10 MG SUSTAINED ACTING TABLET PO SCH (22:00)
[2019-05-24] MEDS ORDERED: ROSUVASTATIN CA 5 MG TABLET (FP) PO SCH (22:00)
[2019-05-24] MEDS ORDERED: traZODone HCL 50 MG TABLET (FP) PO SCH (22:00)
[2019-05-25] MEDS: CEFAZOLIN 2 GM/D5W 2 GM/50 ML ML IVPB SCH (00:05)
[2019-05-25] MEDS: ACETAMINOPHEN 325 MG TABLET (FP) PO SCH ×2 (00:05→07:03)
[2019-05-25 06:21] VITALS: BP 124/57; PULSE 73; TEMP 98.9
[2019-05-25] MEDS: INSULIN SLIDING SCALE (NOVOLOG) 1 VIAL SQ SCH (07:02)
[2019-05-25] MEDS ORDERED: ASPIRIN 325 MG TABLET PO SCH (08:00)
[2019-05-25] MEDS ORDERED: HYDROCHLOROTHIAZIDE 12.5 MG CAPSULE (FP) PO SCH (10:00)
[2019-05-25] MEDS ORDERED: VALSARTAN 160 MG TABLET (UD) PO SCH (10:00)
[2019-05-25] MEDS ORDERED: amLODIPine BESYLATE 5 MG TABLET (FP) PO SCH (10:00)
--- NOTE | 2019-05-27 15:52 | SPEC ---
DATE OF OPERATION: 05/24/2019 PREOPERATIVE DIAGNOSIS: Degenerative joint disease, left knee. POSTOPERATIVE DIAGNOSIS: Degenerative joint disease, left knee. PROCEDURE: Left medial unicompartmental knee replacement with robotic-assisted navigation (MAKOplasty) and patelloplasty. SURGICAL ATTENDING: Adis Werner MD JUNIOR ACCOUNTANT BOOKKEEPER: LEA Noel ANESTHESIA: Regional and spinal. CLOSURE: Medial DIANE components with a 4 femur, 4 tibia, 9 polyethylene; No. 1 Vicryl, fascia; 0 and 2-0, subcutaneous; 3-0 Monocryl subcuticular with skin glue for skin; 4-0 undyed Vicryl for pin sites. ESTIMATED BLOOD LOSS: Negligible. COMPLICATIONS: None. CONDITION: To recovery in stable condition. DESCRIPTION OF OPERATIVE PROCEDURE: Patient was taken to the operating room on May 24, 2019. Spinal and regional anesthesia was administered by the anesthesiologist. IV Kefzol and TXA were administered prophylactically prior to the case. A well-padded pneumatic tourniquet was placed on the left proximal thigh. The left lower extremity was prepped and draped in the usual sterile fashion. A 6- to 8-cm longitudinal incision over the medial side of the patella from mid patella to the tibial tubercle was incised and was deepened using Bovie cautery. An arthrotomy was then made just medial to the patellar tendon and the patella. Subperiosteal dissection was done on the anteromedial proximal tibia all the way back to the MCL. Partial fat pad excision was performed, exposing the medial compartment. Checkpoint was malleable at both the femur and the tibia. Using 2 stab incisions in the femur 1 handbreadth above the patella on the femur and 2 stab incisions 1 handbreadth below the tibial tubercle on the tibia, 2 threaded pins were drilled in parallel fashion from anterior to posterior, going through the proximal cortex and engaging the 2nd but not through the 2nd cortex. To these threaded pins were fastened navigation rays, 1 on the femur and 1 on the tibia. The knee was then registered with the navigation device with the center of the rotation of the hip, medial and lateral malleoli, and multiple points both on the femur and on the tibia. Excellent registration of less than 0.5 mm was obtained on both to ensure adequate registration. The navigation device ensured us to "pop the bubbles" both on the femur and the tibia and that was performed and passed registration. The knee was then thoroughly inspected to remove all osteophytes both on the femur and the tibia. Also, osteophytes on the trochlea and on the surface of the patella were removed as well. The knee was then stressed with valgus stress at 0, 30, 60, 90, and 120 degrees of flexion. This propagated a looseness/tightness graft. The virtual positions of the components were then optimized to ensure an excellent graft. The tracking also was optimized by manipulating the virtual position to ensure that the femoral component articulated with the central portion of the tibial component. The robot was then brought into the field and was registered. The robot was used to bur the bone on both the femur and the tibia as to the specifications of the components. The trial components were then applied on both the femur and the tibia with an appropriate polyethylene insert. The knee was taken through a range of motion and found to have full extension, full flexion, with excellent stability. Stressing the graft revealed an excellent looseness/tightness graft with the trial components in place. The trial components were removed. The knee was thoroughly irrigated with a copious amount of antibiotic irrigation. The real components were then cemented in using modern generation cement techniques with antibiotic cement and pressurization. After the cement was hardened, the knee was thoroughly inspected to remove out all excess cement. The real polyethylene insert was then clipped into place. Range of motion and stability were again assessed to be as they were with the trials. At this time, the pins and the checkpoints were removed. The knee was again thoroughly irrigated. The arthrotomy was closed with No. 1 Vicryl, 0 and 2-0 subcutaneous, and 3-0 Monocryl subcuticular with skin glue for the skin, 4-0 undyed Vicryl for the pin sites. Sterile pressure dressing was placed over the knee. Patient awakened from anesthesia and transferred to recovery in stable condition. No complications. Estimated blood loss negligible. X-rays postoperatively revealed excellent position of the components. Malou [id number]
== END 2019-05-25 11:20 | disposition home health service (06) ==
LOC: FASU 05:58 → FM/S 06:25 → FASU 05-25 11:20
PROVIDERS: ATTEND Orthopaedic Surgery
PROC: 8E0YXBZ Computer Assisted Procedure of Lower Extremity (ICD-10-PCS; 2019-05-24)
PROC: 8E0Y0CZ Robotic Assisted Procedure of Lower Extremity, Open Approach (ICD-10-PCS; 2019-05-24)
PROC: 0SRD0L9 Replacement of Left Knee Joint with Medial Unicondylar Synthetic Substitute, Cemented, Open Approach (ICD-10-PCS; principal; 2019-05-24 08:27)
DX: M17.12 Unilateral primary osteoarthritis, left knee (principal)
CPT/HCPCS: 20985; 27446; C1776; S2900; 73560-TC-LT-FY; 82962; 94760; 97116-GP; 97162-GP

== ENCOUNTER 2020-06-17 13:33 | Emergency (ER) | payer OTHER | END 2020-06-17 14:36 | disposition home or self-care (01) | LOC: JVIRT 13:33 | DX: Z11.59 Encounter for screening for other viral diseases (principal) | CPT/HCPCS: C9803; Q3014-GT; U0003 ==

== ENCOUNTER 2020-09-06 12:30 | Emergency (ER) | payer OTHER | END 2020-09-06 12:46 | disposition home or self-care (01) | LOC: JVIRT 12:30 | DX: Z20.822 Contact with and (suspected) exposure to COVID-19 (principal) | CPT/HCPCS: C9803; G2012-GT; U0003 ==

== ENCOUNTER 2020-09-23 11:09 | Emergency (ER) | payer OTHER | END 2020-09-23 11:47 | disposition home or self-care (01) | LOC: JVIRT 11:09 | DX: Z20.822 Contact with and (suspected) exposure to COVID-19 (principal) | CPT/HCPCS: C9803; G2012-GT; U0003 ==

== ENCOUNTER 2020-09-26 16:53 | Emergency (ER) | payer OTHER ==
[2020-09-26 17:19] VITALS: TEMP 99; BMI 30.5
[2020-09-26] MEDS ORDERED: BAMLANIVIMAB 700 MG in SODIUM CHLORIDE 250 ML IVPB ONE (17:44)
[2020-09-26 19:00] LABS: HEMATOCRIT 38.9 % (32.4-45.2); HEMOGLOBIN 13.1 GM/dL (10.7-15.3); MCH 27.5 pg (25.7-33.7); MCHC 33.7 g/dl (32.0-36.0); MEAN CELL VOLUME 81.7 fl (80-96); PLATELET COUNT 152 K/MM3 (134-434); RBC 4.77 M/mm3 (3.60-5.2); RDW 13.6 % (11.6-15.6); WHITE BLOOD COUNT 4.4 K/mm3 (4.0-10.0)
[2020-09-26 20:42] LABS: POTASSIUM 4.4 mmol/L (3.5-5.1)
[2020-09-26 20:45] LABS: BLOOD UREA NITROGEN 15.6 mg/dL (7-18); CALCIUM 9.3 mg/dL (8.5-10.1)
[2020-09-26 20:49] LABS: CREATININE 0.7 mg/dL (0.55-1.3)
[2020-09-26 21:36] VITALS: BP 136/78; PULSE 89
== END 2020-09-26 22:03 | disposition home or self-care (01) ==
LOC: JER 16:53
DX: U07.1 COVID-19 (principal)
CPT/HCPCS: 36415; 80048; 85027; 99284-25; M0239; Q0239

== ENCOUNTER 2020-11-05 16:23 | Emergency (ER) | payer OTHER ==
[2020-11-06 08:06] LABS: SARS-CoV-2 NAA Not Detected (Not Detected)
== END 2020-11-05 16:37 | disposition home or self-care (01) ==
LOC: JVIRT 16:23
DX: Z11.52 Encounter for screening for COVID-19 (principal)
CPT/HCPCS: C9803; G2251-GT; U0003; U0005

== ENCOUNTER 2023-12-19 11:03 | Day surgery (SDC) | payer OTHER ==
[2023-12-19] MEDS: ACETAMINOPHEN 325 MG TABLET (FP) PO ONE (11:20)
[2023-12-19] MEDS: ZOLEDRONIC ACID/MAN/WATER 5 MG/100 ML INFUS..BTL IVPB ONE (11:44)
[2023-12-19 12:32] VITALS: BP 120/70; PULSE 72; RESP 16; TEMP 97.5
== END 2023-12-19 12:49 | disposition home or self-care (01) ==
LOC: FINFUSION 11:03 → FM/S 11:05 → FINFUSION 12:49
PROVIDERS: ATTEND Family Medicine
PROC: 3E033GC Introduction of Other Therapeutic Substance into Peripheral Vein, Percutaneous Approach (ICD-10-PCS; principal; 2023-12-19)
DX: M81.8 Other osteoporosis without current pathological fracture (principal)
CPT/HCPCS: 96365; J3489

== ENCOUNTER 2024-05-02 04:38 | Day surgery (SDC) | payer OTHER ==
[2024-04-17 11:40] VITALS: BMI 29.9
[2024-05-02 13:54] VITALS: TEMP 98
[2024-05-02 15:43] VITALS: BP 134/69; PULSE 64; RESP 18
== END 2024-05-02 14:43 | disposition home or self-care (01) ==
LOC: JASU-ENDO 04:38
PROVIDERS: ATTEND Internal Medicine Gastroenterology
PROC: 0DB78ZX Excision of Stomach, Pylorus, Via Natural or Artificial Opening Endoscopic, Diagnostic (ICD-10-PCS; 2024-05-02)
PROC: 0DB68ZX Excision of Stomach, Via Natural or Artificial Opening Endoscopic, Diagnostic (ICD-10-PCS; 2024-05-02)
PROC: 0DB38ZX Excision of Lower Esophagus, Via Natural or Artificial Opening Endoscopic, Diagnostic (ICD-10-PCS; principal; 2024-05-02 12:30)
DX: Z87.19 Personal history of other diseases of the digestive system (principal); K21.00 Gastro-esophageal reflux disease with esophagitis, without bleeding; K31.7 Polyp of stomach and duodenum
CPT/HCPCS: 82962; 88305-TC; 88312-TC; 88342-TC